=== PATIENT | male | born 1995 | race Caucasian/White ===

== ENCOUNTER 2020-09-16 21:12 | Inpatient (IN) | payer OTHER, SELFPAY ==
[2020-09-16 21:55] VITALS: BP 121/65; PULSE 71; RESP 18; TEMP 36.8; O2SAT 97; BMI 18.1
--- NOTE | 2020-09-16 22:04 | XR_ITS ---
EXAMINATION: XR HIP, LEFT CLINICAL INFORMATION: Fall. Left hip pain. COMPARISON: None TECHNIQUE: Two views of the left hip. FINDINGS: There is a displaced angulated transverse fracture through the neck of the left femur. Femoral head remains seated in the acetabulum. The right proximal femur is normal. No fracture of pelvis. XR/XR hip LT w PEL1V IMPRESSION: Fracture through left femoral neck.
--- NOTE | 2020-09-16 22:11 | ED.FALL ---
HPI - Fall General Chief Complaint: Fall Stated Complaint: FALL Time Seen by Provider: 09/16/20 22:04 Source: patient Mode of arrival: ambulatory Limitations: no limitations History of Present Illness HPI Narrative: 25 years old male otherwise healthy, patient slipped on the snow landed on his left side of his body complaining of left hip pain, patient was not able to bear weight on his left hip ever since, patient appeared comfortable however severe pain if he would try to move his left lower extremities/left hip. Patient decline head injury, C-spine injury, chest injury, abdominal injury. Related Data Allergies Allergy/AdvReac Type Severity Reaction Status Date / Time No Known Allergies Allergy Verified 09/16/20 21:58 Review of Systems Review of Systems: All other systems are reviewed and are negative Constitutional: Reports as per HPI and Reports no additional constitutional complaints Eyes: Reports as per HPI and Reports no additional eye complaints Reports system reviewed and no additional complaints, except as documented Cardiovascular: Reports as per HPI and Reports no additional cardiovascular complaints Respiratory: Reports as per HPI and Reports no additional respiratory complaints Gastrointestinal: Reports as per HPI and Reports no additional gastrointestinal complaints Genitourinary: Reports no additional female genitourinary complaints Musculoskeletal: Reports no additional musculoskeletal complaints Skin/Breast: Reports system reviewed and no additional complaints, except as docu Psychiatric: Reports no additional psychiatric complaints Endocrine: Reports no additional endocrine complaints Hematologic/Lymphatic: Reports no additional hematologic/lymphatic complaints Allergic/Immunologic: Reports no additional allergic/immunologic complaints Reports system reviewed and no additional complaints, except as documented and Reports Abnormal speech present [facility] Past Medical History Medical History No known health problems Social History Social History Smoked in Last 30 Days: No Substance Use Type: Marijuana Advance Directives: No Physical Exam Vital Signs: Vital Signs: Last Vital Signs Temp 98.3 F 09/16/20 21:55 Pulse 80 09/16/20 23:37 Resp 18 09/16/20 23:37 BP 116/68 09/16/20 23:37 Pulse Ox 99 09/16/20 23:37 Body Mass Index 18.1 Vital signs have been reviewed as normal and appeared to be correct. Blood pressure normal. Heart rate normal. Respiration rate normal. Temperature normal. Oxygen saturation normal. Appearance: Alert. Oriented X3. No acute distress. Head: Normal external exam. Normocephalic. Atraumatic. No Jackson signs noted. No raccoon eyes noted Eyes: PERRLA. EOMI. Conjunctiva and sclera normal. Eyelids normal. ENT: EAC normal. TM's Normal. Pharynx normal. Uvula midline. Moist mucous membranes. No trismus noted. No drooling noted. No muffled voice noted. Neck: Normal inspection. Neck supple. FROM. No adenopathy. Thyroid Normal. No meningeal signs. No neck mass noted. CVS: Normal heart rate and rhythm. Heart sound normal. No murmurs noted. Pulses normal throughout. Respiratory: No respiratory distress. Painless inspiration. Breath sounds normal. No wheezes/rales/rhonchi noted. Chest nontender. No accessory muscle usage noted or decreased air movement noted. Abdomen: Soft and nontender. Bowel sounds normal in all 4 quadrants. No distention noted. No organomegaly noted. No visible injury noted. Back: No CVA tenderness. Full range of motion noted. Skin: Skin warm and dry. Normal skin color. Normal skin turgor. No rashes/lesions/lacerations noted. Extremities: No lower extremity edema. Extremities exhibit normal range of motion. Left hip tenderness, mild deformity, left lower extremity is shortened and externally rotated.. Neuro: Oriented X 3. No motor deficit. No sensory deficit. Reflexes normal. Course Course Course Narrative: Assessment and plan. 25-year-old male otherwise healthy presented after fell landed on his left hip as a result has left hip fracture. Admit to ortho. MDM - Fall Lab Data Attestation: I reviewed the patient's lab results. Result diagrams: 09/16/20 22:53 09/16/20 22:54 Labs: Lab Results 09/16/20 09/16/20 Range/Units 22:53 22:54 WBC 15.6 H (4.8-10.8) X10*3/uL RBC 4.09 L (4.60-5.80) X10*6/uL Hgb 13.0 L (14.0-18.0) g/dl Hct 38.0 L (42-52) % MCV 92.9 (80-98) fL MCH 31.8 (27.0-33.0) pg MCHC 34.2 (31.0-36.0) g/dl RDW 12.1 (11.0-16.0) % Plt Count 163 (160-400) X10*3/uL MPV 10.2 (9.4-12.4) fL Immature Gran % (Auto) 0.3 (0.0-0.4) % Neut % (Auto) 88.1 H (45-73) % Lymph % (Auto) 6.2 L (20-40) % [place] % (Auto) 5.1 (2-11) % Eos % (Auto) 0.0 (0-4) % Baso % (Auto) 0.3 (0-2) % Lymph # (Auto) 1.0 L (1.2-4.9) X10*3/uL [place] # (Auto) 0.8 (0.1-1.2) X10*3/uL Eos # (Auto) 0.0 (0.0-0.4) X10*3/uL Baso # (Auto) 0.0 (0.0-0.2) X10*3/uL Abs Immat Gran (auto) 0.05 H (0.00-0.03) X10*3/uL Absolute Neuts (auto) 13.7 H (2.0-8.3) X10*3/uL Absolute Nucleated RBC 0.000 (0.0-0.012) X10*3/uL Nucleated RBC % (auto) 0.0 (0.0-0.2) /100WBC Sodium 141 (135-145) mmol/L Potassium 3.5 (3.3-5.1) mmol/l Chloride 103 (96-108) mmol/L Carbon Dioxide 25 (22-29) mmol/L Anion Gap 17 (12-20) BUN 14 (9-16) mg/dL Creatinine 0.84 (0.5-1.4) mg/dL Estim Creat Clear Calc 111.1 Estimated GFR > 60 Random Glucose 88 (60-115) mg/dL Calcium 9.5 (8.4-10.2) mg/dL Imaging Data Chest x-ray: Radiologist's impression: Unremarkable examination. Left hip x-ray: Radiologist's impression: Fracture through left femural neck. ECG Data Interpretation: Normal sinus rhythm at 66 beats per minute, normal axis, normal intervals, no ST-T changes. Discharge Plan Discharge Clinical Impression: Fall Qualifiers: Encounter type: initial encounter Qualified Code(s): W19.XXXA - Unspecified fall, initial encounter Closed fracture of left hip Qualifiers: Encounter type: initial encounter Qualified Code(s): S72.002A - Fracture of unspecified part of neck of left femur, initial encounter for closed fracture Patient Disposition: Admitted As Inpatient
--- NOTE | 2020-09-16 22:17 | XR_ITS ---
EXAMINATION: XR CHEST CLINICAL INFORMATION: Preoperative COMPARISON: None TECHNIQUE: Frontal view of the chest was obtained. 10:21 PM FINDINGS: No significant abnormality is noted involving the heart, lungs, mediastinum, bony thorax or soft tissues. XR/XR chest 1V IMPRESSION: Unremarkable examination.
--- NOTE | 2020-09-16 22:17 | ECG_ITS ---
Test Reason : BROKEN HIP Blood Pressure : / mmHG Vent. Rate : 066 BPM Atrial Rate : 066 BPM P-R Int : 126 ms QRS Dur : 106 ms QT Int : 402 ms P-R-T Axes : 026 085 060 degrees QTc Int : 421 ms Normal sinus rhythm Normal ECG No previous ECGs available Referred By: Eliot Chi Electronically Signed By:Jaxson Pierre
[2020-09-16 23:00] LABS: MANUAL DIFF FLAG NO
[2020-09-16 23:01] VITALS: RESP 22
[2020-09-16 23:01] LABS: Basophils Percent Auto 0.3 % (0-2); Imm Gran Abs Auto 0.05 X10*3/uL (0.00-0.03); Imm Gran Pct Auto 0.3 % (0.0-0.4); Lymphocytes Percent Auto 6.2 % (20-40); Mean Corpuscular HGB Conc 34.2 g/dl (31.0-36.0); Mean Corpuscular Hemoglobin 31.8 pg (27.0-33.0); Mean Corpuscular Volume 92.9 fL (80-98); Mean Platelet Volume 10.2 fL (9.4-12.4); Monocytes Absolute Auto 0.8 X10*3/uL (0.1-1.2); Monocytes Percent Auto 5.1 % (2-11); Neutrophils Absolute Auto 13.7 X10*3/uL (2.0-8.3); Neutrophils Percent Auto 88.1 % (45-73); Platelet Count 163 X10*3/uL (160-400); Red Blood Count 4.09 X10*6/uL (4.60-5.80); Red Cell Distribution Width 12.1 % (11.0-16.0); White Blood Count 15.6 X10*3/uL (4.8-10.8)
[2020-09-16] MEDS: Morphine Sulfate 2 MG/ML CARTRIDGE 1 MG IVPUSH (23:01)
[2020-09-16] MEDS: Dextrose 5 % and 0.45 % NaCl 1,000 ML 100 ML IVCONT (23:30)
[2020-09-16 23:31] LABS: Anion Gap 17 (12-20); Blood Urea Nitrogen 14 mg/dL (9-16); Calcium 9.5 mg/dL (8.4-10.2); Carbon Dioxide 25 mmol/L (22-29); Chloride 103 mmol/L (96-108); Creatinine Clr Calc Pharmacy 111.1; Estimated Glomerular Filt Rate > 60; Glucose Random 88 mg/dL (60-115); Potassium 3.5 mmol/l (3.3-5.1); Sodium 141 mmol/L (135-145)
[2020-09-16 23:37] VITALS: BP 116/68; PULSE 80; RESP 18; O2SAT 99
[2020-09-17] VITALS (17 sets, daily range): BP systolic 94–123; BP diastolic 57–71; PULSE 57–98; RESP 14–18; TEMP 36.6–37.4; O2SAT 97–100; BMI 18.1
[2020-09-17] MEDS: 0.9 % Sodium Chloride Flush 3 ML SYRINGE IVFLUSH
[2020-09-17 00:37] LABS: COVID-19 Test Negative (Negative); IDNOW Serial# 9DD0AD1C
[2020-09-17] MEDS: 0.9 % Sodium Chloride 1,000 ML 999 ML IVCONT (00:47)
--- NOTE | 2020-09-17 01:20 | PC.NURSE ---
ASSUMED CARE OF PT. PT FELL ON ICE AND FX LEFT HIP AREA. PT NOW RATING PAIN 8/10. PT UNABLE TO GET COMFORTABLE. PT AWAITING FOR SURGERY IN THE MORNING AND IS NPO AT THIS TIME. PT ALERT, RESPIRATIONS EASY, N/L. SKIN W/D. VS OBTAINED. WILL CONTINUE TO MONITOR PT.
--- NOTE | 2020-09-17 01:20 | PC.NURSE ---
REPORT GIVEN TO AUDREY URENA WHO WILL BE TAKING OVER PT CASE. PT HAD TURKEY SANDWICH AT 11PM AND WAS NPO AFTER MIDNIGHT. PT NS RUNNING AND PAIN IN CONTROL AT THIS TIME.
--- NOTE | 2020-09-17 02:20 | PC.NURSE ---
PT RESTING IN STRETCHER. PT C/O PAIN TO LEFT HIP. MD AWARE AND PT MEDICATED PER EMAR. WILL CONTINUE TO MONITOR PT.
[2020-09-17] MEDS: HYDROmorphone HCl 0.5 MG/0.5 ML SYRINGE 0.25 MG IVPUSH ×2 (02:21→06:22)
--- NOTE | 2020-09-17 03:00 | PC.NURSE ---
PT RESTING IN STRETCHER STATING IM FEELING BETTER . PT NOW RATING PAIN 3/10. WILL CONTINUE TO MONITOR PT.
--- NOTE | 2020-09-17 04:22 | PC.NURSE ---
PT AWAKE AND WATCHING TV STATING I CAN'T SLEEP . PT DENIES ANY COMPLAINTS AND ASKING QUESTIONS REGARDING SURGERY. PT REMAINS ALERT, RESPIRATIONS N/L. SKIN W/D. WILL CONTINUE TO MONITOR PT.
--- NOTE | 2020-09-17 06:04 | PC.NURSE ---
PT REQUESTING PAIN MEDS.
--- NOTE | 2020-09-17 07:12 | FL_ITS ---
EXAMINATION: XR FLUOROSCOPY WITH IMAGES CLINICAL INFORMATION: Left hip fracture COMPARISON: Previous x-ray from yesterday TECHNIQUE: Fluoroscopy performed by Dr. Abdullahi Burch. Fluoroscopy time: 1.2 minutes DAP: 0.4 mGycm2 Images: 2 FINDINGS: There are 3 screws transfixing the left femoral neck fracture. Alignment appears improved. FL/FL guidance in OR IMPRESSION: Fluoroscopic guidance for ORIF of left femoral neck fracture.
--- NOTE | 2020-09-17 07:41 | P.HPOP_ITS ---
History of Present Illness History of Present Illness Date of Service: 09/17/20 Chief complaint: Left hip fracture Narrative: SUNIL BROWN is a 25 year old male who slipped on ice last night and injured his left hip. He was seen in the ED complaining of left hip pain. He denies LOC or other injury. He describes falling directly on his left hip. Imaging revealed a displaced left femoral neck fracture. Review of Systems Constitutional: Constitutional: Reports as per HPI and Reports no additional constitutional complaints Eyes: Eyes: Reports no additional eye complaints Cardiovascular: Cardiovascular: Reports as per HPI and Reports no additional cardiovascular complaints Respiratory: Respiratory: Reports as per HPI and Reports no additional respir atory complaints Gastrointestinal: Gastrointestinal: Reports as per HPI and Reports no additional gastrointestinal complaints Integumentary/Breasts: Skin/Breast: Reports system reviewed and no additional complaints, except as docu Neurologic: Reports system reviewed and no additional complaints, except as documented Psychiatric: Psychiatric: Reports no additional psychiatric complaints PMFSH Past Medical History Medical History No known health problems Social History Social History Smoking Status: Never smoker Smoked in Last 30 Days: No Use of substances other than those prescribed or required for medical reasons: Yes Substance Use Type: Marijuana Advance Directives: No Meds Allergies Allergy/AdvReac Type Severity Reaction Status Date / Time No Known Allergies Allergy Verified 09/16/20 21:58 Home Medications Medication Instructions Recorded Confirmed Type No Known Home Meds 09/17/20 09/17/20 History Physical Exam Vital Signs: Vital Signs: Last Vital Signs Temp 98.5 F 09/17/20 07:27 Pulse 64 09/17/20 07:27 Resp 16 09/17/20 07:27 BP 107/71 09/17/20 07:27 Pulse Ox 100 09/17/20 07:27 Body Mass Index 18.1 Const: General: cooperative, healthy appearing, no acute distress and well groomed Orientation/consciousness: oriented to person and oriented to place HENMT: Head: Yes normal to inspection, Yes normocephalic and Yes atraumatic Eyes: General: appearance normal, both eyes and all related structures Alignment and Position: alignment normal Conjunctivae: conjunctivae normal EOM: EOMs intact bilaterally Neck: Neck: Yes normal visual inspection and Yes trachea midline Resp: Other: No rerpiratory distress Effort & Inspection: normal respiratory effort and able to speak in complete sentences Cardio: Other: Palpable radial pulse with no appreciable rythmic abnormalities GI: Other: No abdominal distension Back/Spine/Pelvis: Cervical Spine: normal cervical lordosis and cervical ROM normal Skin: General skin exam: no rashes or lesions noted Neuro: General: oriented to person, oriented to place and gait normal Extrem: Other: left hip with pain on log roll. Externally rotated and shortened. Intact DP pulse. SILT Results Labs Result Diagrams: 09/16/20 22:53 09/16/20 22:54 Labs: Abnormal lab results 09/16/20 Range/Units 22:53 WBC 15.6 H (4.8-10.8) X10*3/uL RBC 4.09 L (4.60-5.80) X10*6/uL Hgb 13.0 L (14.0-18.0) g/dl Hct 38.0 L (42-52) % Neut % (Auto) 88.1 H (45-73) % Lymph % (Auto) 6.2 L (20-40) % Lymph # (Auto) 1.0 L (1.2-4.9) X10*3/uL Abs Immat Gran (auto) 0.05 H (0.00-0.03) X10*3/uL Absolute Neuts (auto) 13.7 H (2.0-8.3) X10*3/uL H & H 09/16/20 Range/Units 22:53 Hgb 13.0 L (14.0-18.0) g/dl Hct 38.0 L (42-52) % All other labs normal. Diagnostic results Hip x-ray: image reviewed (displaced left femoral neck fracture) Assessment and Plan (1) Left displaced femoral neck fracture: Status: Acute This is a 25 yo M with a left femoral neck fracture. It is displaced and requires urgent surgical intervention. I recommend CRPP with possible ORIF of the left hip. I explained the procedure including the risk of avn, fracture displacement and the possible need for additional surgery. I discussed the risk of infection, pain, nerve injury. He expressed understanding and we will proceed forward accordingly.
--- NOTE | 2020-09-17 07:41 | MHC.SHP ---
Pre-Procedural Eval Section A The patient is an INPATIENT: Yes Changes since office visit: Yes Patient answered all questions; No Cold of Flu in the past 2 weeks, No New Medical Problems and No Changes in Medication The History & Physical has been completed within 30 days and I have reviewed it.: Yes Section B Chief Complaint: Left hip fracture Allergies: Allergies Allergy/AdvReac Type Severity Reaction Status Date / Time No Known Allergies Allergy Verified 09/16/20 21:58 Plan I have reviewed the history and physical and performed a pertinent physical examination on my patient. No changes have occurred unless specified.
--- NOTE | 2020-09-17 08:03 | PC.NURSE ---
PATIENT STILL RECEVING A NERVE BLOC BY BEDSIDE.
--- NOTE | 2020-09-17 09:06 | MHC.CM.PN ---
Attempted to meet with patient in regards to d/c planning. Patient has already been taken to the OR. Will attempt to meet again. Continue to monitor for d/c needs.
--- NOTE | 2020-09-17 09:20 | P.BOP_ITS ---
Brief Operative Note Date of Service: 09/17/20 Pre-op diagnosis: left femoral neck fracture Post-op diagnosis: same Procedure: CRPP left femoral neck fracture Implants: styker 8.0 cannulated partially threaded screws x3 Surgeon: Abdullahi Burch MD Anesthesia: GETA, regional and local Mathematical Physicist: Soila Parr Estimated blood loss (mL): 25 Tourniquet time (min): 0 IV fluids (mL): 1,000 Pathology: none sent Condition: stable Disposition: PACU
--- NOTE | 2020-09-17 11:00 | OP_ITS ---
SURGEON: Abdullahi Burch MD INDICATIONS: A 25-year-old gentleman with displaced femoral neck fracture. PREOPERATIVE DIAGNOSIS: Left femoral neck fracture, displaced. POSTOPERATIVE DIAGNOSIS: Left femoral neck fracture, displaced. PROCEDURE PERFORMED: Closed reduction and percutaneous pinning, left femoral neck fracture. ESTIMATED BLOOD LOSS: 50 mL. COMPLICATIONS: None known. ANESTHESIA: Regional and general and local. ASSISTANTS: None. SPECIMENS: IMPLANTS: [place] 8.0 cannulated partially threaded screws x3. FLUIDS: 1 L. PROCEDURE IN DETAIL: The patient was brought to the operating room, placed supine on the operative table. He was prepped and draped in standard sterile fashion. Time-out was called to identify proper site, proper procedure, and proper surgeon. IV antibiotics per weight was administered. I began by applying traction and internal rotation to reduce the head. Biplanar fluoroscopic views were used to confirm the reduction was anatomic on the lateral with near anatomic alignment on the AP with valgus orientation similar to his contralateral limb. I was happy with the reduction and felt that ORIF would not improve this. Therefore, I placed 3 partially threaded K-wires in an inverted triangle position into the neck and head and then measured and placed my three 8.0 mm screws, making sure on biplanar fluoroscopy that they were intraosseous and of the appropriate length and that the fracture reduction was maintained. Traction was let down. Final radiographs were taken. I was happy with the alignment and the positioning. The wound was irrigated, closed with absorbable suture and olvin and I injected 30 mL of 0.25% Marcaine with epinephrine about the incision. MD CHUY Jessica/TREV / [id number]
[2020-09-17] MEDS: Dextrose 5 % and 0.45 % NaCl 1,000 ML 100 ML IVCONT ×2 (13:22→23:34)
[2020-09-17] MEDS: ceFAZolin Sodium/Dextrose,Iso 2 GM/50 ML PIGGYBACK IV (13:25)
[2020-09-17] MEDS: oxyCODONE HCl Immed Release 5 MG TABLET PO ×2 (17:24→22:06)
[2020-09-18] VITALS (8 sets, daily range): BP systolic 91–112; BP diastolic 47–66; PULSE 54–76; RESP 18–20; TEMP 36.6–37.4; O2SAT 97–100; BMI 18.1
[2020-09-18] MEDS: 0.9 % Sodium Chloride Flush 3 ML SYRINGE IVFLUSH ×2 (01:07→15:47)
[2020-09-18] MEDS: oxyCODONE HCl Immed Release 5 MG TABLET PO ×3 (07:08→18:10)
--- NOTE | 2020-09-18 09:12 | PM.PNORT ---
Subjective Subjective Date of Service: 09/18/20 Principal diagnosis: s/p left hip canulated screws Interval history: POD1 s/p canulated screws left hip no overnight events, he has not been out of bed yet, he has minimal pain. No concerns. Physical Exam Vital Signs: Vital Signs: Last Vital Signs Temp 98.9 F 09/18/20 07:40 Pulse 54 09/18/20 07:40 Resp 18 09/18/20 07:40 BP 102/57 L 09/18/20 07:40 Pulse Ox 98 09/18/20 07:40 Body Mass Index 18.1 Const: General: cooperative, healthy appearing and no acute distress Resp: Effort & Inspection: normal respiratory effort and able to speak in complete sentences Cardio: Rate: regular rate Peripheral pulses: Peripheral pulses 2+ throughout GI: Palpation (GI): Soft to palpation Skin: General skin exam: no rashes or lesions noted Extrem: Other: Left hip dressing intact, no erythema or drainage. Sensation intact. Pulses present. Progress Note: A&P Assessment and plan (1) Closed fracture of left hip: Status: Acute Assessment and Plan: Continue pain mgmnt Begin asa for dvt ppx begin PT /OT for left hip fracture-TTWB with crutches Dispo planning-Pending PT eval, pain mgmnt Fall Risk Details Current Medications: Current Medications Generic Name Dose Route Start Last Admin Trade Name Freq PRN Reason Stop Dose Admin Acetaminophen 650 mg 09/16/20 23:26 Acetaminophen 325 Mg Tablet PO QID PRN Pain, Mild (Pain Scale 1-3) Fentanyl 25 mcg 09/17/20 09:20 Fentanyl Citrate/Pf 100 Mcg/2 Ml Vial IVPUSH Q5M PRN Pain, Moderate (Pain Scale 4-6 Hydromorphone HCl 0.25 mg 09/16/20 23:26 09/17/20 06:22 Hydromorphone Hcl 0.5 Mg/0.5 Ml Syringe IVPUSH 0.25 mg RQ4H PRN Administration Pain, Severe (Pain Scale 7-10) Dextrose/Sodium Chloride 1,000 mls @ 100 mls/hr 09/16/20 23:30 09/17/20 23:34 D51/2ns IVCONT 100 mls/hr .Q10H SWATHI Administration Ondansetron HCl 4 mg 09/16/20 23:32 Ondansetron Hcl 4 Mg/2 Ml Vial IVPUSH QID PRN Nausea and Vomiting Ondansetron HCl 4 mg 09/17/20 09:20 Ondansetron Hcl 4 Mg/2 Ml Vial IVPUSH ONCE PRN Nausea and Vomiting Oxycodone HCl 5 mg 09/16/20 23:32 09/18/20 07:08 Oxycodone Hcl Immed Release 5 Mg Tablet PO 5 mg Q4H PRN Administration Pain, Moderate (Pain Scale 4-6 Oxycodone HCl 10 mg 09/17/20 09:20 Oxycodone Hcl Immed Release 5 Mg Tablet PO ONCE PRN Pain, Severe (Pain Scale 7-10) Sodium Chloride 3 ml 09/17/20 00:00 09/18/20 07:12 0.9 % Sodium Chloride Flush 3 Ml Syringe IVFLUSH Not Given QSHIFT SWATHI Time Spent With Patient Time: Total time spent is greater than 50% in coordination of care (as documented) at patient's floor/unit and/or counseling patient: Time with patient: less than 15 minutes
--- NOTE | 2020-09-18 09:24 | MHC.CM.PN ---
PATIENT IS FULLY INDEPENDENT. NO DME OR VNA HE AGREES TO ASSIGNING A HCP, AND HE ASSIGNS HIS , CHULA THE AGENT. COPY IN CHART. CASE MANAGEMENT FOLLOWING FOR DISCHARGE PLAN
--- NOTE | 2020-09-18 09:26 | MHC.CM.PN ---
Addendum entered by Bess Dewitt 09/18/20 09:45: CALL TO [facility] ([phone]) FINDS THAT PATIENT IS NOT ACTIVE WITH THE MEDICAL CENTER. CM OFFICE NOTIFIED. Original Note: PCP IS AT [facility] . HE FORGETS THE PCP NAME. UPDATE MADE IN [employer] QUICK TASK.
--- NOTE | 2020-09-18 09:49 | HO.POSTANES ---
Post Anesthesia Evaluation Post Anesthesia Evaluation Vital Signs: Vital Signs Temp Pulse Resp BP Pulse Ox 09/18/20 07:40 98.9 F 54 18 102/57 L 98 09/18/20 03:17 99.4 F 68 18 100/52 L 97 09/17/20 23:18 99.3 F 68 18 110/58 L 97 Anesthesia: General Mental Status: Awake Pain Control: Satisfactory Nausea/Vomiting: None Hydration: Adequate Anesthesia-Related Issues: No Anes. Related Issues
--- NOTE | 2020-09-18 13:25 | MHC.CM.PN ---
REFERRAL PLACED TO [facility] FOR REQUEST OF HOME PHYSICAL THERAPY SERVICES. PATIENT DOES NOT HAVE A PREFERENCE OF AGENCIES, AND IS AGREEABLE TO [facility]. CASE MANAGEMENT FOLLOWING.
[2020-09-18] MEDS: Dextrose 5 % and 0.45 % NaCl 1,000 ML 100 ML IVCONT (17:59)
[2020-09-19] MEDS: oxyCODONE HCl Immed Release 5 MG TABLET 10 MG PO (00:25)
[2020-09-19 03:24] VITALS: BP 105/58; PULSE 69; RESP 20; TEMP 36.3; O2SAT 97
[2020-09-19] MEDS: Dextrose 5 % and 0.45 % NaCl 1,000 ML 100 ML IVCONT (04:07)
[2020-09-19 06:54] LABS: Basophils Percent Auto 0.4 % (0-2); Red Cell Distribution Width 12.5 % (11.0-16.0)
[2020-09-19 06:57] LABS: Eosinophils Absolute Auto 0.3 X10*3/uL (0.0-0.4); Eosinophils Percent Auto 3.8 % (0-4); Hematocrit 30.9 % (42-52); Hemoglobin 10.1 g/dl (14.0-18.0); Imm Gran Abs Auto 0.03 X10*3/uL (0.00-0.03); Imm Gran Pct Auto 0.4 % (0.0-0.4); Lymphocytes Absolute Auto 2.5 X10*3/uL (1.2-4.9); Lymphocytes Percent Auto 35.9 % (20-40); Mean Corpuscular HGB Conc 32.7 g/dl (31.0-36.0); Mean Corpuscular Hemoglobin 32.2 pg (27.0-33.0); Mean Corpuscular Volume 98.4 fL (80-98); Mean Platelet Volume 10.7 fL (9.4-12.4); Monocytes Absolute Auto 0.8 X10*3/uL (0.1-1.2); Monocytes Percent Auto 11.9 % (2-11); Neutrophils Absolute Auto 3.2 X10*3/uL (2.0-8.3); Neutrophils Percent Auto 47.6 % (45-73); Platelet Count 113 X10*3/uL (160-400); Red Blood Count 3.14 X10*6/uL (4.60-5.80); White Blood Count 6.8 X10*3/uL (4.8-10.8)
[2020-09-19 07:07] LABS: Anion Gap 11 (12-20); Blood Urea Nitrogen 13 mg/dL (9-16); Carbon Dioxide 29 mmol/L (22-29); Chloride 106 mmol/L (96-108); Creatinine Clr Calc Pharmacy 126.1; Estimated Glomerular Filt Rate > 60; Glucose Random 105 mg/dL (60-115); Sodium 142 mmol/L (135-145)
--- NOTE | 2020-09-19 07:24 | PM.PNORT ---
Subjective Subjective Date of Service: 09/19/20 Principal diagnosis: s/p left hip canulated screws Interval history: POD2 s/p lt hip cannulated screws. He is resting comfortably in bed. No overnight events. Wants to go home today. Pain is well managed. Physical Exam Vital Signs: Vital Signs: Last Vital Signs Temp 97.3 F 09/19/20 03:24 Pulse 69 09/19/20 03:24 Resp 20 09/19/20 03:24 BP 105/58 L 09/19/20 03:24 Pulse Ox 97 09/19/20 03:24 Body Mass Index 18.1 Const: General: cooperative, healthy appearing and no acute distress Resp: Effort & Inspection: normal respiratory effort and able to speak in complete sentences Cardio: Rate: regular rate Peripheral pulses: Peripheral pulses 2+ throughout GI: Palpation (GI): Soft to palpation Skin: Lesions: no lesions Rashes: no rashes Extrem: Other: lt hip no ecchymosis, redness, drainage. Dressing is clean dry and intact. NVI. Calf is supple nontender. Progress Note: A&P Assessment and plan (1) Closed fracture of left hip: Status: Acute Assessment and Plan: Continue pain mgmnt Continue ASA for dvt ppx Continue PT for lt hip cannulated screws Dispo planning-Pending PT eval, pain mgmnt Fall Risk Details Current Medications: Current Medications Generic Name Dose Route Start Last Admin Trade Name Freq PRN Reason Stop Dose Admin Acetaminophen 650 mg 09/16/20 23:26 Acetaminophen 325 Mg Tablet PO QID PRN Pain, Mild (Pain Scale 1-3) Fentanyl 25 mcg 09/17/20 09:20 Fentanyl Citrate/Pf 100 Mcg/2 Ml Vial IVPUSH Q5M PRN Pain, Moderate (Pain Scale 4-6 Hydromorphone HCl 0.25 mg 09/16/20 23:26 09/17/20 06:22 Hydromorphone Hcl 0.5 Mg/0.5 Ml Syringe IVPUSH 0.25 mg RQ4H PRN Administration Pain, Severe (Pain Scale 7-10) Dextrose/Sodium Chloride 1,000 mls @ 100 mls/hr 09/16/20 23:30 09/19/20 04:07 D51/2ns IVCONT 100 mls/hr .Q10H SWATHI Administration Ondansetron HCl 4 mg 09/16/20 23:32 Ondansetron Hcl 4 Mg/2 Ml Vial IVPUSH QID PRN Nausea and Vomiting Ondansetron HCl 4 mg 09/17/20 09:20 Ondansetron Hcl 4 Mg/2 Ml Vial IVPUSH ONCE PRN Nausea and Vomiting Oxycodone HCl 5 mg 09/16/20 23:32 09/18/20 18:10 Oxycodone Hcl Immed Release 5 Mg Tablet PO 5 mg Q4H PRN Administration Pain, Moderate (Pain Scale 4-6 Sodium Chloride 3 ml 09/17/20 00:00 09/18/20 23:53 0.9 % Sodium Chloride Flush 3 Ml Syringe IVFLUSH Not Given QSHIFT SWATHI Trazodone HCl 25 mg 09/18/20 20:02 Trazodone Hcl 25 Mg Halftab PO BEDTIME PRN Sleep Time Spent With Patient Time: Total time spent is greater than 50% in coordination of care (as documented) at patient's floor/unit and/or counseling patient: Time with patient: less than 15 minutes
--- NOTE | 2020-09-19 07:26 | P.DS_ITS ---
DS: Providers Provider Date of Service: 09/19/20 Date of admission: 09/16/20 23:23 Primary care physician: Unknown Physician DS: Diagnosis Discharge Diagnosis (1) Closed fracture of left hip: Status: Acute Problem details: Mr. Barksdale is a 25 yo male who presented to the ER with after sustaining a fall onto his left hip. After the fall he was unable to ambulate and had increased left hip pain. He was found to have a left femoral neck fracture. He was consented to move forward with a left hip closed reduction and percutaneous pinning. DS: Medications Discharge Medications Home Medications: Home Medications Medication Instructions Recorded Confirmed No Known Home Meds 09/17/20 09/17/20 Previous Rx's Medication Instructions Recorded oxycodone 10 mg PO Q6H PRN 7 Days #28 tab 09/18/20 DS: Summary Hospital Course Hospital Course: The patient underwent a successful left hip percutaneous pinning, they were transferred to PACU and then to the floor to recover. During their stay, their vitals were stable, afebrile at 97.3. Labs were unremarkable, H/H 10.1/30.9. POD 1 they were started on Aspirin 325mg po bid for DVT ppx, they also received Physical Therapy services twice a day. Prior to discharge, their dressing was clean dry and intact and the plan was to be discharged home with VNA services. Status at Discharge Overall status at discharge: other (Crutches for TTWB ) Time Spent with Patient Time attestation: Total time spent providing and/or coordinating discharge services: Discharge coordination time: Less than 30 minutes (30 mins) Physical Exam Vital Signs: Vital Signs: Last Vital Signs Temp 97.3 F 09/19/20 03:24 Pulse 69 09/19/20 03:24 Resp 20 09/19/20 03:24 BP 105/58 L 09/19/20 03:24 Pulse Ox 97 09/19/20 03:24 Body Mass Index 18.1 Const: General: cooperative, healthy appearing and no acute distress Resp: Effort & Inspection: normal respiratory effort and able to speak in complete sentences Cardio: Rate: regular rate Peripheral pulses: Peripheral pulses 2+ throughout GI: Palpation (GI): Soft to palpation Skin: Lesions: no lesions Rashes: no rashes Extrem: Other: Lt hip no ecchymosis, redness, drainage. Dressing is clean, dry, and intact. Calf is supple and nontender. NVI DS: Data Data Completed and Pending Labs on day of discharge: Laboratory Tests 09/16/20 09/16/20 09/17/20 22:53 22:54 00:16 WBC 15.6 H RBC 4.09 L Hgb 13.0 L Hct 38.0 L MCV 92.9 MCH 31.8 MCHC 34.2 RDW 12.1 Plt Count 163 MPV 10.2 Immature Gran % (Auto) 0.3 Neut % (Auto) 88.1 H Lymph % (Auto) 6.2 L [place] % (Auto) 5.1 Eos % (Auto) 0.0 Baso % (Auto) 0.3 Lymph # (Auto) 1.0 L [place] # (Auto) 0.8 Eos # (Auto) 0.0 Baso # (Auto) 0.0 Abs Immat Gran (auto) 0.05 H Absolute Neuts (auto) 13.7 H Absolute Nucleated RBC 0.000 Nucleated RBC % (auto) 0.0 Sodium 141 Potassium 3.5 Chloride 103 Carbon Dioxide 25 Anion Gap 17 BUN 14 Creatinine 0.84 Estim Creat Clear Calc 111.1 Estimated GFR > 60 Random Glucose 88 Calcium 9.5 COVID-19 (LOKESH) Negative COVID-19 Clin Com See Note 09/19/20 09/19/20 06:02 06:02 WBC 6.8 RBC 3.14 L D Hgb 10.1 L D Hct 30.9 L MCV 98.4 H D MCH 32.2 MCHC 32.7 RDW 12.5 Plt Count 113 L D MPV 10.7 Immature Gran % (Auto) 0.4 Neut % (Auto) 47.6 Lymph % (Auto) 35.9 [place] % (Auto) 11.9 H Eos % (Auto) 3.8 Baso % (Auto) 0.4 Lymph # (Auto) 2.5 [place] # (Auto) 0.8 Eos # (Auto) 0.3 Baso # (Auto) 0.0 Abs Immat Gran (auto) 0.03 Absolute Neuts (auto) 3.2 Absolute Nucleated RBC 0.000 Nucleated RBC % (auto) 0.0 Sodium 142 Potassium 4.0 Chloride 106 Carbon Dioxide 29 Anion Gap 11 L BUN 13 Creatinine 0.74 Estim Creat Clear Calc 126.1 Estimated GFR > 60 Random Glucose 105 Calcium COVID-19 ([facility]) COVID-19 Clin Com Discharge Plan Discharge Patient Disposition: Home Health Service Referrals: Abdullahi Burch MD [Physician] - Rozina Mcpherson PA-C [Physician Molecular Biology Director] - (2 weeks followup with ortho) Discharge Medications: New acetaminophen 325 mg Tablet 650 mg PO QID PRN (Reason: Pain, Mild (Pain Scale 1-3)) 30 Days Qty: 240 RF: 0 oxycodone 10 mg tablet 10 mg PO Q6H PRN (Reason: Pain, Severe (Pain Scale 7-10)) 7 Days Qty: 28 RF: 0 aspirin 325 mg tablet 325 mg PO BID 28 Days Qty: 56 RF: 0 Discharge Orders: Discharge Order (Routine); Ordered 09/19/20 Ordered By: Rozina Mcpherson Diet: regular diet Activity on Discharge: Walk with crutches Stand Alone Forms: Patient Portal Discharge page Activity Restrictions/Additional Instructions: Gait training, strengthening, ADLs Crutches with TTWB Continue ASA for dvt ppx x4 weeks Keep dressing clean, dry and intact-no showering or tub baths Follow up with Orthopedics in 2 weeks Care Plan Goals: Restor fxn of the left hip Health Concerns: none Plan of Treatment: Physical Therapy Pain management DVT prophylaxis
[2020-09-19 07:30] LABS: Calcium 8.4 mg/dL (8.4-10.2)
[2020-09-19 08:00] VITALS: BP 98/53; PULSE 51; RESP 18; TEMP 36.7; O2SAT 100
--- NOTE | 2020-09-19 08:14 | W.MHC.F2F ---
Service Date Service Date: 09/19/20 Reasons for Services Reason for physical therapy: home safety and mobility, therapeutic exercises, restore joint function, gait/transfer training and ADL training Reason for occupational therapy: home safety and mobility, therapeutic exercises, restore joint function, gait/transfer training and ADL training Homebound: Leaving the home is medically contraindicated at this time without the asist of a device and/or another person due th the listed conditions above and below. Homebound supporting statement: Pt. is considered homebound due to recent surgery. Unable to drive, poor balance, poor gait mechanics. Certification: Based on the above findings, I certify that this patient is confined to the home and needs intermittent prison care, physical therapy and/or speech therapy, or continues to need occupational therapy. The patient is under my care, and I have initiated the establishment of the plan of care. The patient will be followed by a physician who will periodically review the plan of care.
--- NOTE | 2020-09-19 08:33 | MHC.CM.PN ---
PATIENT IS DISCHARGED HOME WITH [facility]. PA MADE AWARE THAT PATIENT IS NOT ACTIVE WITH A PCP, AND SURGEON WOULD NEED TO SIGN ORDERS FOR THESE SERVICES.
[2020-09-19] MEDS: Acetaminophen 325 MG TABLET 650 MG PO (08:51)
[2020-09-19] MEDS: oxyCODONE HCl Immed Release 5 MG TABLET PO (08:52)
[2020-09-19 09:45] VITALS: BP 98/53; PULSE 51; O2SAT 100
== END 2020-09-19 12:06 | disposition home health service (06) | DRG 536 ==
LOC: HO.ED 22:30 → HO.EDOVER 09-17 00:07 → HO.S3 09-17 12:26
PROVIDERS: Physician Assistant; Admitting Provider Orthopaedic Surgery; Emergency Provider Emergency Medicine; Visit Provider Anesthesiology
PROC: 0QS Lower Bones, Reposition (ICD-10-PCS; principal; 2020-09-17 08:00)
DX: S72.002A Fracture of unspecified part of neck of left femur, initial encounter for closed fracture (principal); W00.0XXA Fall on same level due to ice and snow, initial encounter; Y93.9 Activity, unspecified; Y92.9 Unspecified place or not applicable; Y99.9 Unspecified external cause status; Z20.822 Contact with and (suspected) exposure to COVID-19
CPT/HCPCS: 36415; 71045; 73502; 80048; 85025; 87635; 93005; 96361; 96374; 97110; 97116; 97161; 97165; 97530; 97535; 99284; 99285; C1713; C1769; J0690; J1100; J1170; J2250; J2270; J2405; J3010

== ENCOUNTER 2020-10-02 08:40 | Outpatient (REF) | payer OTHER, SELFPAY ==
--- NOTE | ~2020-10-02 | XR_ITS ---
EXAMINATION: XR PELVIS XR HIP, LEFT CLINICAL INFORMATION: Left femoral fracture. COMPARISON: Pelvic and left hip radiographs dated 09/16/2020 TECHNIQUE: AP view of the pelvis and frog-leg lateral view of the left hip. FINDINGS: There are 3 orthopedic screws across the left femoral neck with interval reduction of the previously seen displaced femoral neck fracture. The fracture now appears in near-anatomic alignment with mild new bone/callus formation. No acute hardware fracture. No perihardware lucency to suggest loosening or infection. Overlying surgical olvin. No abnormal soft tissue calcification. XR/XR pelvis 1-2V IMPRESSION: Orthopedic screws across the previously seen left femoral neck fracture which now appears in near-anatomic alignment. No evidence of hardware complication. Mild new bone/callus formation.
--- NOTE | ~2020-10-02 | XR_ITS ---
EXAMINATION: XR PELVIS XR HIP, LEFT CLINICAL INFORMATION: Left femoral fracture. COMPARISON: Pelvic and left hip radiographs dated 09/16/2020 TECHNIQUE: AP view of the pelvis and frog-leg lateral view of the left hip. FINDINGS: There are 3 orthopedic screws across the left femoral neck with interval reduction of the previously seen displaced femoral neck fracture. The fracture now appears in near-anatomic alignment with mild new bone/callus formation. No acute hardware fracture. No perihardware lucency to suggest loosening or infection. Overlying surgical olvin. No abnormal soft tissue calcification. XR/XR hip LT min 2V IMPRESSION: Orthopedic screws across the previously seen left femoral neck fracture which now appears in near-anatomic alignment. No evidence of hardware complication. Mild new bone/callus formation.
== END 2020-10-02 08:41 | disposition home or self-care (01) ==
LOC: HO.HOSX 08:40
PROVIDERS: Visit Provider Physician Assistant
DX: S72.002D Fracture of unspecified part of neck of left femur, subsequent encounter for closed fracture with routine healing (principal)
CPT/HCPCS: 72170; 73502

== ENCOUNTER 2020-10-30 07:33 | Outpatient (REF) | payer OTHER, SELFPAY ==
--- NOTE | ~2020-10-30 | XR_ITS ---
EXAMINATION: XR PELVIS XR HIP, LEFT CLINICAL INFORMATION: Pain. COMPARISON: Pelvic and left hip radiographs dated 10/02/2020. TECHNIQUE: AP view of the pelvis and crosstable lateral view of the left hip. FINDINGS: Orthopedic screw is redemonstrated across the left femoral neck fracture. No change in fracture alignment. No significant new bone/callus formation when compared to the prior examination. No radiographic evidence of osseous bridging. No acute hardware fracture or periarticular lucency to suggest loosening or infection. XR/XR hip LT 1V IMPRESSION: Orthopedic screws across the left femoral neck fracture in unchanged anatomic alignment. No evidence of new bone/callus formation or increased osseous bridging.
--- NOTE | ~2020-10-30 | XR_ITS ---
EXAMINATION: XR PELVIS XR HIP, LEFT CLINICAL INFORMATION: Pain. COMPARISON: Pelvic and left hip radiographs dated 10/02/2020. TECHNIQUE: AP view of the pelvis and crosstable lateral view of the left hip. FINDINGS: Orthopedic screw is redemonstrated across the left femoral neck fracture. No change in fracture alignment. No significant new bone/callus formation when compared to the prior examination. No radiographic evidence of osseous bridging. No acute hardware fracture or periarticular lucency to suggest loosening or infection. XR/XR pelvis 1-2V IMPRESSION: Orthopedic screws across the left femoral neck fracture in unchanged anatomic alignment. No evidence of new bone/callus formation or increased osseous bridging.
== END 2020-10-30 07:34 | disposition home or self-care (01) ==
LOC: HO.HOSX 07:33
PROVIDERS: Visit Provider Orthopaedic Surgery
DX: S72.002D Fracture of unspecified part of neck of left femur, subsequent encounter for closed fracture with routine healing (principal)
CPT/HCPCS: 72170; 73501

== ENCOUNTER 2020-12-04 08:07 | Outpatient (REF) | payer OTHER, SELFPAY ==
--- NOTE | ~2020-12-04 | XR_ITS ---
EXAMINATION: XR PELVIS CLINICAL INFORMATION: Fracture COMPARISON: Prior x-ray marked 07/11/2021 TECHNIQUE: AP pelvis and single axial views of the left hip obtained. FINDINGS: [address] through the left femoral neck. Fracture of the left femoral neck has not healed yet. Adjacent pelvic bones and right hip otherwise remain normal. XR/XR hip LT min 2V IMPRESSION: Postsurgical changes, stable mildly displaced left femoral neck fracture, ORIF.
--- NOTE | ~2020-12-04 | XR_ITS ---
EXAMINATION: XR PELVIS CLINICAL INFORMATION: Fracture COMPARISON: Prior x-ray marked 07/11/2021 TECHNIQUE: AP pelvis and single axial views of the left hip obtained. FINDINGS: [address] through the left femoral neck. Fracture of the left femoral neck has not healed yet. Adjacent pelvic bones and right hip otherwise remain normal. XR/XR pelvis 1-2V IMPRESSION: Postsurgical changes, stable mildly displaced left femoral neck fracture, ORIF.
== END 2020-12-04 08:08 | disposition home or self-care (01) ==
LOC: HO.HOSX 08:07
PROVIDERS: Visit Provider Orthopaedic Surgery
DX: M25.552 Pain in left hip (principal); S72.002A Fracture of unspecified part of neck of left femur, initial encounter for closed fracture; X58.XXXA Exposure to other specified factors, initial encounter; Y93.9 Activity, unspecified; Y92.9 Unspecified place or not applicable; Y99.8 Other external cause status
CPT/HCPCS: 72170; 73502

== ENCOUNTER 2021-01-15 07:54 | Outpatient (REF) | payer SELFPAY ==
--- NOTE | ~2021-01-15 | XR_ITS ---
EXAMINATION: PELVIS AND LEFT HIP CLINICAL INFORMATION: Fracture of left femur COMPARISON: Multiple prior examinations most recent November 2020 TECHNIQUE: AP the pelvis and lateral view of the left hip FINDINGS: [address] crossing the previously noted femoral neck fracture. Fracture remains visible but unchanged. Alignment is unchanged with minimal displacement. I suspect there is at least some osseous bridging given the increased sclerosis particularly along the lateral aspect of the fracture line compared with earlier radiographs. Hardware intact The remaining bones joints and soft tissues unremarkable. XR/XR hip LT 1V IMPRESSION: Stable appearance of the left femoral neck fracture status post orthopedic fixation. The fracture remains visible but unchanged.
--- NOTE | ~2021-01-15 | XR_ITS ---
EXAMINATION: PELVIS AND LEFT HIP CLINICAL INFORMATION: Fracture of left femur COMPARISON: Multiple prior examinations most recent November 2020 TECHNIQUE: AP the pelvis and lateral view of the left hip FINDINGS: [address] crossing the previously noted femoral neck fracture. Fracture remains visible but unchanged. Alignment is unchanged with minimal displacement. I suspect there is at least some osseous bridging given the increased sclerosis particularly along the lateral aspect of the fracture line compared with earlier radiographs. Hardware intact The remaining bones joints and soft tissues unremarkable. XR/XR pelvis 1-2V IMPRESSION: Stable appearance of the left femoral neck fracture status post orthopedic fixation. The fracture remains visible but unchanged.
== END 2021-01-15 07:55 | disposition home or self-care (01) ==
LOC: HO.HOSX 07:54
PROVIDERS: Visit Provider Orthopaedic Surgery
DX: S72.002A Fracture of unspecified part of neck of left femur, initial encounter for closed fracture (principal); M25.552 Pain in left hip
CPT/HCPCS: 72170; 73501

== ENCOUNTER 2021-02-12 08:15 | Outpatient (REF) | payer SELFPAY ==
--- NOTE | ~2021-02-12 | XR_ITS ---
EXAMINATION: XR PELVIS 1 VIEWS XR LEFT HIP: 2 VIEWS CLINICAL INFORMATION: Pain COMPARISON: Priors dating back to August 2020 FINDINGS: Again seen are 3 cannulated screws traversing the left femoral neck fracture which now appears healed with residual sclerosis along the fracture indicative of ongoing osseous remodeling. Trace residual lucency evident medially. There is a 2 mm lucency along the screws which is within normal limits. Alignment is unchanged. Femoral heads are spherical. Bilateral coxa valga. Pelvic ring intact. Sacroiliac joints and symphysis pubis unremarkable. XR/XR pelvis 1-2V IMPRESSION: Healing, if not completely healed left femoral neck fracture. There is 2 mm lucency along the cannulated screws which is within normal limits. No new fractures.
--- NOTE | ~2021-02-12 | XR_ITS ---
EXAMINATION: XR PELVIS 1 VIEWS XR LEFT HIP: 2 VIEWS CLINICAL INFORMATION: Pain COMPARISON: Priors dating back to August 2020 FINDINGS: Again seen are 3 cannulated screws traversing the left femoral neck fracture which now appears healed with residual sclerosis along the fracture indicative of ongoing osseous remodeling. Trace residual lucency evident medially. There is a 2 mm lucency along the screws which is within normal limits. Alignment is unchanged. Femoral heads are spherical. Bilateral coxa valga. Pelvic ring intact. Sacroiliac joints and symphysis pubis unremarkable. XR/XR hip LT 1V IMPRESSION: Healing, if not completely healed left femoral neck fracture. There is 2 mm lucency along the cannulated screws which is within normal limits. No new fractures.
== END 2021-02-12 08:16 | disposition home or self-care (01) ==
LOC: HO.HOSX 08:15
PROVIDERS: Visit Provider Orthopaedic Surgery
DX: S72.002A Fracture of unspecified part of neck of left femur, initial encounter for closed fracture (principal)
CPT/HCPCS: 72170; 73501; 99212

== ENCOUNTER 2021-05-07 08:07 | Outpatient (REF) | payer OTHER, SELFPAY ==
--- NOTE | ~2021-05-07 | XR_ITS ---
EXAMINATION: XR PELVIS XR HIP, LEFT CLINICAL INFORMATION: Pain. COMPARISON: Pelvic and left hip radiographs dated 02/12/2021. TECHNIQUE: AP view the pelvis. Frog-leg lateral view of the left hip. FINDINGS: Redemonstration of a healing left femoral neck fracture in unchanged alignment with associated orthopedic screws. No hardware fracture. No perihardware lucency to suggest loosening or infection. Redemonstration of coxa valga, unchanged. No new fracture or dislocation. No osseous erosion. No abnormal soft tissue calcification. XR/XR hip LT 1V IMPRESSION: Left femoral neck fracture and ORIF in unchanged anatomic alignment with mild interval healing. No evidence of hardware complication.
--- NOTE | ~2021-05-07 | XR_ITS ---
EXAMINATION: XR PELVIS XR HIP, LEFT CLINICAL INFORMATION: Pain. COMPARISON: Pelvic and left hip radiographs dated 02/12/2021. TECHNIQUE: AP view the pelvis. Frog-leg lateral view of the left hip. FINDINGS: Redemonstration of a healing left femoral neck fracture in unchanged alignment with associated orthopedic screws. No hardware fracture. No perihardware lucency to suggest loosening or infection. Redemonstration of coxa valga, unchanged. No new fracture or dislocation. No osseous erosion. No abnormal soft tissue calcification. XR/XR pelvis 1-2V IMPRESSION: Left femoral neck fracture and ORIF in unchanged anatomic alignment with mild interval healing. No evidence of hardware complication.
== END 2021-05-07 08:08 | disposition home or self-care (01) ==
LOC: HO.HOSX 08:07
PROVIDERS: Visit Provider Orthopaedic Surgery
DX: S72.002A Fracture of unspecified part of neck of left femur, initial encounter for closed fracture (principal)
CPT/HCPCS: 72170; 73501; 99212

== ENCOUNTER 2021-08-06 08:00 | Outpatient (REF) | payer OTHER, SELFPAY ==
--- NOTE | ~2021-08-06 | XR_ITS ---
EXAMINATION: PELVIS AND LEFT HIP X-RAYS CLINICAL INFORMATION: Left hip pain COMPARISON: 05/07/2021 TECHNIQUE: A frontal radiograph of the pelvis and cross table lateral radiograph of the left hip were acquired. FINDINGS: There are 3 cannulated screws transfixing a healed subcapital fracture of the left femoral neck. There is no evidence of ostial lysis or recurrent fracture. The remainder of the osseous structures are intact. XR/XR pelvis 1-2V IMPRESSION: Intact cannulated screws transfixing healed fracture of the left femoral neck, with no suspicious findings.
--- NOTE | ~2021-08-06 | XR_ITS ---
EXAMINATION: PELVIS AND LEFT HIP X-RAYS CLINICAL INFORMATION: Left hip pain COMPARISON: 05/07/2021 TECHNIQUE: A frontal radiograph of the pelvis and cross table lateral radiograph of the left hip were acquired. FINDINGS: There are 3 cannulated screws transfixing a healed subcapital fracture of the left femoral neck. There is no evidence of ostial lysis or recurrent fracture. The remainder of the osseous structures are intact. XR/XR hip LT min 2V IMPRESSION: Intact cannulated screws transfixing healed fracture of the left femoral neck, with no suspicious findings.
== END 2021-08-06 08:01 | disposition home or self-care (01) ==
LOC: HO.HOSX 08:00
PROVIDERS: Visit Provider Physician Assistant
DX: S72.002D Fracture of unspecified part of neck of left femur, subsequent encounter for closed fracture with routine healing (principal)
CPT/HCPCS: 72170; 73502; 99212

== ENCOUNTER 2021-11-23 12:20 | Outpatient (REF) | payer OTHER, SELFPAY | END 2021-11-23 12:21 | disposition home or self-care (01) | LOC: HO.HOSX 12:20 | PROVIDERS: Visit Provider Orthopaedic Surgery | DX: Z13.89 Encounter for screening for other disorder (principal) ==

== ENCOUNTER 2022-04-15 08:40 | Outpatient (REF) | payer OTHER, SELFPAY ==
--- NOTE | ~2022-04-15 | XR_ITS ---
EXAMINATION: XR HIP, LEFT CLINICAL INFORMATION: Hip pain COMPARISON: Pelvis and left hip radiographs 08/06/2021, 05/07/2021 TECHNIQUE: AP view pelvis is performed along with AP and frog-lateral projections left hip. FINDINGS: No acute bony abnormality. No acute fracture or dislocation or destructive process. There are 3 cannulated screws again seen left hip. Hardware intact. No destructive process or osteolysis. There is spina bifida occulta at S1. The SI joints and pubis show no diastases. No interval hip joint narrowing or erosive change. XR/XR hip LT w PEL1V IMPRESSION: Postsurgical changes left hip. No destructive process. Hardware intact. No acute bony abnormality.
== END 2022-04-15 08:41 | disposition home or self-care (01) ==
LOC: HO.HOSX 08:40
PROVIDERS: Visit Provider Orthopaedic Surgery
DX: S72.002A Fracture of unspecified part of neck of left femur, initial encounter for closed fracture (principal)
CPT/HCPCS: 73502; 99212

== ENCOUNTER 2022-12-14 01:30 | Inpatient (IN) | payer OTHER, SELFPAY ==
--- OUTSIDE RECORDS SUMMARY | 2022-12-14 01:35 | XMS_ITS | Continuity of Care Document ---
Author Name Unknown Organization [facility] Address [address] [place] [address]- Care Team Providers Care Shuttle Operator Name Role Phone Zay Flores MD, Arnold Primary Care Physician Encounter [facility] Date(s): 08/31/21 - 09/30/21 [facility] [address] [place] [address]- Attending Physician: Osiel Lees Admitting Physician: Osiel Lees Referring Physician: Admtr, Ar8 Allergies, Adverse Reactions, Alerts No Known Allergies Immunizations Given and Recorded Vaccine Date Status Refusal Reason SARS-CoV-2 (COVID-19) mRNA BNT-162b2 vac 02/03/21 Recorded SARS-CoV-2 (COVID-19) mRNA BNT-162b2 vac 01/10/21 Recorded Varicella Virus Vaccine 07/09/08 Recorded Varicella Virus Vaccine 03/15/95 Recorded Meningococcal Conjugate Vaccine 07/09/08 Recorded tetanus/diphtheria/pertussis, acel(Tdap) 05/06/06 Recorded Measles/Mumps/Rubella Virus Vaccine 05/29/98 Recor ded Measles/Mumps/Rubella Virus Vaccine 08/25/95 Recor ded Medications PEG-3350 with Electrolytes (Eqv-[id number]) oral powder for reconstitution See Instructions, as directed, # 1 each, 0 Refills, Maintenance, 08/31/21 11:07:00 EST, [id number], ok to sub for any gallon prep, as directed, 180, cm, 06/29/21 13:03:00 EST, Height Start Date: 08/31/21 Status: Ordered Zofran 4 mg oral tablet 1 tablet = 4 mg, By Mouth, Every 8 hours, PRN Nausea & Vomiting, # 10 tablet, 0 Refills, Maintenance, 06/29/21 14:20:00 EST, Tablet, Partial fill upon patient request if the prescription is for aschedule II opioid drug. Start Date: 06/29/21 Status: Ordered Problem List Condition Effective Dates Status Health Status Inform ant Abnormal weight loss(Confirmed) Active Anxiety state(Confirmed) Active Closed fracture of hip(Confirmed) 10/20/20 Active Osteoporosis(Confirmed) 12/07/20 Active Underweight(Confirmed) Active Social History Social History Type Response Smoking Status Never (less than 100 in lifetime) entered on: 06/29/21 Sex Male
--- OUTSIDE RECORDS SUMMARY | 2022-12-14 01:35 | XMS_ITS | Continuity of Care Document ---
Author Name Unknown Organization [facility] [place] Address [address] [place] [address]- Care Team Providers Care Religion Teacher Name Role Phone Zay Flores MD, Arnold Primary Care Physician Encounter [facility] Date(s): 05/21/22 - 06/20/22 [facility] [place] [address] [place] [address]- Attending Physician: Osiel Lees Admitting Physician: AdmtrOsiel Referring Physician: Admtr, Ar8 Allergies, Adverse Reactions, [...] Measles/Mumps/Rubella Virus Vaccine 08/25/95 Recor ded Medications FLUoxetine 10 mg oral capsule 10 mg, 1, capsule, By Mouth, Daily, # 30 capsule, Refills 0, Maintenance, 09/03/21 12:37:00 EST, Partial fill upon patient request if the prescription is for a schedule II opioid drug. 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
--- OUTSIDE RECORDS SUMMARY | 2022-12-14 01:35 | XMS_ITS | Continuity of Care Document ---
Author Name Unknown Organization [facility] [place] Address [address] [place] [address]- Care Team Providers Care Bus Driver/Monitor Name Role Phone Arnold Thornton MD Primary Care Physician Encounter [facility] Date(s): 04/08/22 - 05/08/22 [facility] [place] [address] [place] [address]- Allergies, Adverse Reactions, Alerts No Known Allergies [...] Date: 09/03/21 Status: Ordered Problem List Condition Effective Dates Status Health Status Inform ant Abnormal weight loss(Confirmed) Active Anxiety state(Confirmed) Active Chronic hip pain after total replacement of left hip joint(Confirmed) Active Closed fracture of hip(Confirmed) 10/20/20 Active Osteoporosis(Confirmed) 12/07/20 Active Social History Social History Type Response Smoking Status Never (less than 100 in lifetime) entered on: 06/29/21 Sex Male Care Team Personnel Name: Arnold Thornton MD Address: [address] [place] [address], [place] [address]-
--- OUTSIDE RECORDS SUMMARY | 2022-12-14 01:35 | XMS_ITS | Continuity of Care Document ---
Author Name Unknown Organization [facility] [place] Address [address] [place] [address]- Care Team Providers Care Air Tucker Name Role Phone Arnold Thornton MD Primary Care Physician Encounter [facility] Date(s): 04/08/22 - 05/08/22 [facility] [place] [address] [place] [address]- Allergies, Adverse Reactions, Alerts No Known Allergies [...] Team Personnel Name: Arnold Thornton MD Address: [address] [place] [address], [place] [address]-
--- OUTSIDE RECORDS SUMMARY | 2022-12-14 01:35 | XMS_ITS | Continuity of Care Document ---
Author Name Unknown Organization [facility] [place] Address [address] [place] [address]- Care Team Providers Care Head Of Cytogenetics Name Role Phone Arnold Thornton MD Primary Care Physician Encounter [facility] Date(s): 07/06/21 - 10/03/21 [facility] [place] [address] [place] [address]- Attending Physician: Arnold Thornton MD Allergies, Adverse Reactions, Alerts No Known Allergies [...]
--- OUTSIDE RECORDS SUMMARY | 2022-12-14 01:35 | XMS_ITS | Continuity of Care Document ---
Author Name Unknown Organization [facility] [place] Address [address] [place] [address]- Care Team Providers Care Human Services Manager Name Role Phone Arnold Thornton MD Primary Care Physician Encounter [facility] Date(s): 04/09/22 - 05/09/22 [facility] [place] [address] [place] [address]- Allergies, Adverse Reactions, Alerts No Known Allergies [...] Team Personnel Name: Arnold Thornton MD Address: [address] [place] [address], [place] [address]-
--- OUTSIDE RECORDS SUMMARY | 2022-12-14 01:36 | XMS_ITS | Continuity of Care Document ---
Author Name Unknown Organization [facility] Address [address] [place] [address]- Care Team Providers Care Law Tutor Name Role Phone Arnold Thornton MD Primary Care Physician Encounter [facility] Date(s): 02/20/22 - 06/20/22 [facility] [address] [place] [address]- Attending Physician: Arnold Thornton MD Allergies, Adverse [...] (less than 100 in lifetime) entered on: 11/8/21 Sex Male Patient Care team information Personnel Name: Arnold Thornton MD Address: Address: [address] [place] [address] Juan Manuel Zam[place] [address]
--- OUTSIDE RECORDS SUMMARY | 2022-12-14 01:36 | XMS_ITS | Continuity of Care Document ---
Author Name Unknown Organization [facility] Address [address] [place] [address]- Care Team Providers Care Seed Production Field Supervisor Name Role Phone Hernan Forrester MD Primary Care Physician Encounter [facility] Date(s): 08/07/20 - 09/06/[address] [id number] Allergies, Adverse Reactions, Alerts Substance Reaction Severity Status NKA Active
--- OUTSIDE RECORDS SUMMARY | 2022-12-14 01:36 | XMS_ITS | Continuity of Care Document ---
Author Name Unknown Organization [facility] Address [address] [place] [address]- Care Team Providers Care School Photographer Name Role Phone Hernan Forrester MD Primary Care Physician Encounter [facility] Date(s): 10/09/20 - 11/08/[address] [address] Allergies, Adverse Reactions, Alerts Substance Reaction Severity Status NKA Active
--- OUTSIDE RECORDS SUMMARY | 2022-12-14 01:36 | XMS_ITS | Continuity of Care Document ---
Author Name Unknown Organization [facility] Address [address] [place] [address]- Care Team Providers Care Commercial Solar Sales Consultant Name Role Phone Zay Flores MD, Arnold Primary Care Physician En[place] [facility] [place] Date(s): 10/20/21 - 10/20/[address] [address]- Discharge Disposition: A-D/C Home Attending Physician: Citlalli Tellez MD Admitting Physician: Citlalli Tellez MD Referring Physician: Citlalli Tellez MD Allergies, Adverse Reactions, Alerts No Known [...] of hip(Confirmed) 10/20/20 Active Osteoporosis(Confirmed) 12/07/20 Active Vital Signs Most recent to oldest [Reference Range]: 1 2 3 Height 180 cm (10/20/21 10:45 AM) Weight 60.6 kg (10/20/21 10:45 AM) Oxygen Saturation [94-100 %] 100 % (10/20/21 12:30 PM) 100 % (10/20/21 12:25 PM) 100 % (10/20/21 12:20 PM) Pulse Rate [55-90 bpm] 76 bpm (10/20/21 10:45 AM) Body Mass Index [18.5-24.99] 18.7 (10/20/21 10:45 AM) Blood Pressure [90-138/55-84 mm Hg] 130/74mm Hg (10/20/21 12:30 PM) 114/73mm Hg (10/20/21 12:25 PM) 109/66mm Hg (10/20/21 12:20 PM) Respiratory Rate [16-30 br/min] 14 br/min *L* (10/20/21 12:30 PM) 27 br/min (10/20/21 12:25 PM) 12 br/min *L* (10/20/21 12:20 PM) Temperature [96.8-100.4 DegF] 97.0 DegF (10/20/21 10:45 AM) Liters per Minute 6 L/min (10/20/21 12:20 PM) 6 L/min (10/20/21 12:15 PM) Mode of Delivery (Oxygen) Room air (10/20/21 12:45 PM) Room air (10/20/21 12:30 PM) Room air (10/20/21 12:25 PM) Blood pressure sites Arm, left (10/20/21 10:45 AM) Temperature Route Temporal (10/20/21 10:45 AM) Dry Weight 60.6 kg (10/20/21 10:45 AM) Weight Obtained Via Standing scale (10/20/21 10:45 AM) Dry Weight Obtained Via Standing scale (10/20/21 10:45 AM) Social History Social History Type Response Smoking Status Never (less than 100 in lifetime) entered on: 06/29/21 Sex Male
--- OUTSIDE RECORDS SUMMARY | 2022-12-14 01:36 | XMS_ITS | Continuity of Care Document ---
Author Name Unknown Organization [facility] Address [address] [place] [address]- Care Team Providers Care Epic Ambulatory Analysts Name Role Phone Zay Flores MD, Arnold Primary Care Physician Encounter [facility] Date(s): 09/03/21 - 10/03/21 [facility] [address] [place] [address]- Allergies, Adverse Reactions, Alerts No Known Allergies [...]
--- OUTSIDE RECORDS SUMMARY | 2022-12-14 01:36 | XMS_ITS | Continuity of Care Document ---
Author Name Unknown Organization [facility] Address [address] [place] [address]- Care Team Providers Care Commercial Estimator Name Role Phone Not on Staff, PCP Primary Care Physician Unavail able [facility] [facility] [place] 06/29/21 - 06/29/[address] [address]- Encounter Diagnosis Weight loss(Final) - 06/29/21 Nausea(Final) - 06/29/21 Discharge Disposition: A-D/C Home Attending Physician: Gavi Dickerson MD Admitting Physician: Gavi Dickerson MD Referring Physician: Not on Staff, Referring MD Allergies, Adverse Reactions, Alerts Substance Reaction Severity Status NKA Active Medications Zofran 4 mg oral tablet 1 tablet = 4 mg, By Mouth, Every 8 hours, PRN Nausea & Vomiting, # 10 tablet, 0 Refills, Maintenance, 06/29/21 14:20:00 EST, Tablet, Partial fill upon patient request if the prescription is for aschedule II opioid drug. Start Date: 06/29/21 Status: Ordered Vital Signs Most recent to oldest [Reference Range]: 1 2 3 Height 180 cm (06/29/21 1:03 PM) 180 cm (06/29/21 9:54 AM) Weight 54.5 kg (06/29/21 1:03 PM) 54.5 kg (06/29/21 9:54 AM) Oxygen Saturation [94-100 %] 100 % (06/29/21 1:03 PM) 100 % (06/29/21 9:54 AM) 100 % (06/29/21 9:48 AM) Pulse Rate [55-90 bpm] 61 bpm (06/29/21 1:03 PM) 66 bpm (06/29/21 9:54 AM) 77 bpm (06/29/21 9:48 AM) Body Mass Index [18.5-24.99] 16.82 *L* (06/29/21 9:54 AM) Blood Pressure [90-138/55-84 mm Hg] 113/73mm Hg (06/29/21 1:03 PM) 104/65mm Hg (06/29/21 9:54 AM) Respiratory Rate [16-30 br/min] 18 br/min (06/29/21 1:03 PM) 16 br/min (06/29/21 9:54 AM) Temperature [96.8-100.4 DegF] 97.8 DegF (06/29/21 1:03 PM) 98.2 DegF (06/29/21 9:54 AM) Mode of Delivery (Oxygen) Room air (06/29/21 1:03 PM) Room air (06/29/21 9:54 AM) Blood pressure sites Arm, left (06/29/21 1:03 PM) Arm, left (06/29/21 9:54 AM) Temperature Route Oral (06/29/21 1:03 PM) Oral (06/29/21 9:54 AM) Weight Obtained Via Patient/family state d (06/29/21 9:54 AM) Social History Social History Type Response Smoking Status Never (less than 100 in lifetime) entered on: 06/29/21 Sex
--- OUTSIDE RECORDS SUMMARY | 2022-12-14 01:36 | XMS_ITS | Continuity of Care Document ---
Author Name Unknown Organization [facility] Address [address] [place] [address]- Care Team Providers Care Electrician Helper Automotive Name Role Phone Zay Flores MD, Arnold Primary Care Physician [place] [facility] [place] 09/26/21 [facility] [address] [place] [address] [place] Allergies, Adverse Reactions, Alerts No Known Allergies [...]
--- OUTSIDE RECORDS SUMMARY | 2022-12-14 01:36 | XMS_ITS | Continuity of Care Document ---
Author Name Unknown Organization [facility] Address [address] [place] [address]- Care Team Providers Care Braille And Talking Books Clerk Name Role Phone Jade Quevedo Primary Care Physician [phone] Encounter [facility] Date(s): 07/20/21 - 08/19/21 [facility] [address] [place] [address] [place] Allergies, Adverse Reactions, Alerts Substance Reaction Severity Status NKA Active Medications Zofran 4 mg oral tablet 1 tablet = 4 mg, By Mouth, Every 8 hours, PRN Nausea & Vomiting, # 10 tablet, 0 Refills, Maintenance, 06/29/21 14:20:00 EST, Tablet, Partial fill upon patient request if the prescription is for aschedule II opioid drug. Start Date: 06/29/21 Status: Ordered Social History Social History Type Response Smoking Status Never (less than 100 in lifetime) entered on: 06/29/21 Sex Male
[2022-12-14 01:42] VITALS: BP 112/58; PULSE 56; RESP 16; TEMP 36.1; O2SAT 100
--- NOTE | 2022-12-14 03:21 | PC.ADMIT ---
PT is a 27 year old male admitted on CV at 0140 from [facility] ED secondary to a suicide attempt via ingestion of unknown amount of APAP and Vicodin medication and attempted hanging using a doorknob and shoelaces. PT then called his and she called EMS. Per crisis report PT became emotionally dysregulated in response to a verbal altercation with a peer in his home after they had been using Psilocybin ( magic mushrooms). According to the crisis report the peer severed his friendship with the PT due to verbal altercation intensifying when it was discovered that PT had taken some of his peers magic mushrooms and PT began to perseverate on his feelings of guilt and shame and ruminating on ending his life. During the admission process PT was calm and cooperative dressed in hospital attire. Hospitalist and notified of admission. PT T 97.0, P 56, O2 100 %/RA, R 16 and BP 112/58, PT has hx of asymptomatic bradycardia with HR in the 50s at times and severe osteoporosis and hx of hip fracture. PT declined flu shot, tox screen positive for THC and benzos. PT stated during admission interview that he has felt hopeless for years and has past suicide attempts, Nora is very supportive. PT denies SI/HI/AH/VH and reports safe on unit. PT currently in bed resting with eyes closed.
[2022-12-14 04:06] VITALS: BMI 18.1
[2022-12-14 08:49] VITALS: BP 107/68; PULSE 72; RESP 16; TEMP 36.7; O2SAT 99
[2022-12-14] MEDS: hydrOXYzine HCL 25 MG TABLET PO (09:06)
--- NOTE | 2022-12-14 12:28 | P.CONHOSP_ITS ---
History of Present Illness Data of Consult Service Date: 12/14/22 Requesting physician: Sunny Gama Primary Care Provider: Unknown Physician HPI Reason for consult: medical H&P 27 year old male with history osteoporosis with hx left displaced femoral neck fracture and depression/anxiety admitted to psychiatry with consult placed for medical H&P from [facility] ED for attempted suicide with ingestion unknown amount apap and attempted hanging. On arrival to [facility] ED, acetaminophen level was 41.5 with LFTs within normal range and treatment for Tylenol toxicity was not indicated. He was noted to be hypotensive with SBP in the 80s and bradycardic around 40. EKG showed sinus bradycardia without any AV blocks. Prior EKG comparison sewed similar findings. The patient denies any lightheadedness, palpitations, syncope. He tells me that he has been using psilocybin with increased frequency over the last 3 weeks and also vapes cannabis and uses edibles. Denies any alcohol use or cigarette smoking. At this time, he has no complaints. He does tell me that he has had an extensive workup regarding the osteoporosis and has been seen by multiple specialists including orthopedic surgeons, financial retirement plan specialist, geneticists without any conclusive findings. Review of Systems Review of Systems: General: No fevers, malaise, unintentional weight loss HEENT: No blurred vision, diplopia. No sore throat, nasal congestion, rhinorrhea, sinus pain, ear pain Cardiovascular: No chest pain, palpitations, or leg edema Respiratory: No shortness of breath, wheezing, cough GI: No abdominal pain, nausea, vomiting, diarrhea, constipation, melena, hematochezia : No dysuria, hematuria, increased urinary frequency, decreased urinary output MSK: No myalgia, back pain Neuro: No headaches, weakness, paresthesias Skin: No rashes or lesions [facility] Medical History Fall Left displaced femoral neck fracture Osteoporosis Tylenol overdose Social History Household Members: Spouse Household Members Other:: 2 Housing: Apartment Do you presently have visiting nurse or other home services: No Unable to assess alcohol history related to: Unknown Patient Tobacco Use Status: Never used Tobacco Smoked in Last 30 Days: No Patient Interested in Nicotine Replacement: No Patient Given Instructions on How to Stop Smoking: No Second Hand Smoke Exposure: No Use of substances other than those prescribed or required for medical reasons: Yes Substance Use Type: Marijuana Substance Use Type Other:: magic mushrooms (daily last 2 weeks) otherwise sporadic Substance Use Frequency: Daily Last Used Substance: Just Prior to Admission Last Used Substance Other:: THC, magic mushrooms Currently Displaying Signs/Symptoms of Drug Intoxication Withdrawal: No Any prior treatment program specific to substance use: No Have you been hit, kicked, punched, or otherwise hurt by someone within the past year? If so, by whom?: No Do you feel safe in your current relationship?: Yes Is there a partner from a previous relationship who is making you feel unsafe now?: No Are you made to feel afraid or neglected: No Spiritual Healthcare Practices: none [facility] Healthcare Practices: none Cultural Healthcare Practices: none Advance Directives: No Advance Directives Information Provided: Yes Do you have thoughts of harming others: None Do you have a plan to hurt others: No Plan Recently lost weight without trying: Yes How much weight loss: 2-13 pounds Eating poorly because of decreased appetite: Yes Nutrition screen score: 4 Nutrition Risks: No Nutritional Risk Poor oral hygiene: No service: No Current occupational status: employed [employer] Allergies Allergy/AdvReac Type Severity Reaction Status Date / Time No Known Allergies Allergy Verified 04/29/22 08:49 Active Medications: Current Medications Acetaminophen (Acetaminophen 325 Mg Tablet) 650 mg PO Q6H PRN PRN Reason: Headache/Pain Mild Scale (1-3) Al Hydroxide/Mg Hydroxide (Magnesium Hydrox/Alum Hydrox 30 Ml Oral.Susp) 30 ml PO Q6H PRN PRN Reason: Heartburn/Nausea Hydroxyzine HCl (Hydroxyzine Hcl 25 Mg Tablet) 25 mg PO Q6H PRN PRN Reason: Anxiety Last Admin: 12/14/22 09:06 Dose: 25 mg Magnesium Hydroxide (Milk Of Magnesia 30 Ml Oral.Susp) 30 ml PO DAILY PRN PRN Reason: Constipation Trazodone HCl (Trazodone Hcl 50 Mg Tablet) 50 mg PO BEDTIME MRX1 PRN PRN Reason: Insomnia Home Medications Medication Instructions Recorded Confirmed Last Taken Type fluoxetine 10 mg capsule 20 mg PO QAM 04/15/22 12/14/22 Unknown History Physical Exam 2 Vital Signs and Narrative: Vital Signs: Last Vital Signs Temp 97.0 F 12/14/22 01:42 Pulse 56 12/14/22 01:42 Resp 16 12/14/22 01:42 BP 112/58 L 12/14/22 01:42 Pulse Ox 100 12/14/22 01:42 O2 Del Method Room Air 12/14/22 01:42 BMI result Body Mass Index 18.1 Constitutional - Awake and Alert, No apparent distress Eyes - PERRLA, EOMI Cardiovascular - S1S2, RRR, No edema Respiratory - Normal lung expansion, Normal respiratory effort, No respiratory distress, CTA bilaterally Gastrointestinal - NT / ND; +BS; No rebound or guarding Extremities - no calf tenderness bilaterally, no swelling Musculoskeletal - Normal inspection, normal ROM Skin - Warm/Dry Neurological - Alert & oriented x3, CN II-XII in tact, 5/5 strength BUE and BLE Psychological - Appropriate affect Assessment and Plan (1) Routine medical exam: Status: Acute Plan 27 year old male with history osteoporosis with hx left displaced femoral neck fracture and depression/anxiety admitted to psychiatry with consult placed for medical H&P from [facility] ED for attempted suicide with ingestion unknown amount apap and attempted hanging. #Depression/anxiety with SI -plan per psychiatry #Intentional tylenol OD -Acetaminophen level at [facility] ED 41.5, LFTs WNL -treatment within-acetylcysteine not indicated #Sinus bradycardia- seems resolved -EKG at [facility] showing sinus bradycardia, no AV block -Asymptomatic. No intervention need -monitor vitals #Osteoporosis -Pt very young without typical risk factors. Has been worked up extensively by multiple specialties -Recommend calcium and vitamin D supplements -Outpt followup #Moderate malnutrition with protein deficiency -likely complicated by depression/anxiety related anorexia -Nutrition consult placed Thank you for allowing me to participate in this consult. Signing off at this time. Please do not hesitate to call for further questions. Time Spent With Patient Time: Total time managing care of this patient today ____ minutes.
--- NOTE | 2022-12-14 14:02 | P.HPPS_ITS ---
HPI Date of Service: 12/14/22 Chief Complaint: Persistent depressive disorder Sources of Information: patient interviewed, chart reviewed and crisis/core team assessment reviewed HPI Subjective Notes: Hdz Warning and Conditional Voluntary Narrative: Patient is a 27-year-old male with history of chronic depression, anxiety, suicidal ideation, early onset Osteoporosis and psychedelics drug abuse who presents for suicide attempt in the face of depression, relational strife and intoxication on Psylisibin. Patient reports that over the past month his mood has been overall good enough, despite intermittent suicidal thinking, and he is been functioning well, working and maintaining his relationship. Patient has however been abusing psychedelics drugs more this past month due to some increased general anxieties (a state of the world, trying to find a spiritual experience, purpose in life...). This past week he and his friend engaged in significant amount of psychedelics drug abuse during which time they had an argument, patient felt guilty and while intoxicated felt hopeless and attempted to hang himself and overdose on Tylenol. Patient was medically cleared by [facility] ED. patient has been taking Prozac 20 mg consistently though remains with chronic depression/anxiety; he denies AVH, history of manic behavior/episodes or other drug or alcohol abuse. Patient has a history of emotional trauma. He is no longer actively suicidal and would like treatment for depression and anxiety. Past Psychiatric History: Depressed since 4 years old Medication History of Prozac; hydroxyzine Has outpatient providers No history of psychiatric hospitalizations History of 1 time suicide attempt 2020 by hanging however told no one was not admitted Medical Evaluation Reviewed: Hospitalist Griselda Pending [facility] Medical History (Updated 12/14/22 @ 15:11 by Sunny Gama MD) Anxiety Fall Left displaced femoral neck fracture MDD (major depressive disorder), recurrent episode, severe Osteoporosis Tylenol overdose Family History: Mother: Bipolar disorder Maternal aunt: Bipolar disorder Father: Alcoholism, depression Brother: Depression Social History: Lives together with whom he has been with since he has a teenager 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 Substance History: Abuse is Psychedelics for the past several years Trauma History: Emotional trauma history Diagnostics Vital Signs (24Hr): Vital Signs - 24 hr 12/14/22 01:42 12/14/22 08:49 Temperature 97.0 F 98.1 F Pulse Rate 56 72 Respiratory Rate 16 16 Blood Pressure 112/58 L 107/68 Pulse Oximetry 100 99 Oxygen Delivery Method Room Air Room Air BMI result Body Mass Index 18.1 Labs 12/14/22 16:10 Meds/Allergies Meds Home Medications Medication Instructions Recorded Confirmed Type fluoxetine 10 mg capsule 20 mg PO QAM 04/15/22 12/14/22 History Allergies Allergies Allergy/AdvReac Type Severity Reaction Status Date / Time No Known Allergies Allergy Verified 04/29/22 08:49 Mental Status Exam Mental Status Exam Narrative: Pt is alert and oriented; behavior is cooperative, friendly and calm; patient is not in distress; dressed in hospital attire, shaved head, adequate hygiene; mood is described as depressed, anxious and affect congruent, downcast; eye contact appropriate; Speech is normal rate, volume and prosody and not pressured; psychomotor retardation present; thought process is goal directed; Thought content is on treatment; otherwise pertinent to relevant topics and without any delusional content, paranoid ideations or grandiosity; passive SI; no HI. There is no evidence of perceptual disturbance and denies AVH. Patients insight and judgment are impaired. Assessment & Plan Assessment & Plan (1) MDD (major depressive disorder), recurrent episode, severe: Status: Acute Code(s): F33.2 - Major depressive disorder, recurrent severe without psychotic features (2) Anxiety: Status: Acute Code(s): F41.9 - Anxiety disorder, unspecified (3) Hallucinogenic mushrooms use disorder, severe: Status: Acute Code(s): F16.20 - Hallucinogen dependence, uncomplicated (4) Osteoporosis: Status: Acute Code(s): M81.0 - Age-related osteoporosis without current pathological fracture (5) Left displaced femoral neck fracture: Status: Acute Code(s): S72.002A - Fracture of unspecified part of neck of left femur, initial encounter for closed fracture (6) Closed fracture of left hip: Status: Acute Qualifiers: Encounter type: initial encounter Qualified Code(s): S72.002A - Fracture of unspecified part of neck of left femur, initial encounter for closed fracture Code(s): S72.002A - Fracture of unspecified part of neck of left femur, initial encounter for closed fracture Plan Patient is a 27-year-old male with history of chronic depression, anxiety, s uicidal ideation,early onset Osteoporosis and psychedelics drug abuse who presents for suicide attempt in the face of depression, relational strife and intoxication on Psylisibin. -patient seems mostly to be struggling with chronic depression and anxiety and SI, which is also chronic exacerbated by drug use; patient made a comment about suicide due to worries about nuclear war however this seems most likely in the context of intoxication; will continue to explore history of anxiety, paranoid thinking PARAS -for now will continue on Prozac however will likely increase dose as patient is amenable to treatment; agrees to outpt therapy -will admit for safety medication management Plan: CV Q 15 minute checks Increase to Prozac 40 mg daily; will likely titrate Continue hydroxyzine p.r.n. for anxiety Will gather collateral Will continue to explore other medication options -will monitor LFTs Patient Financial Services Coordinator reviewed [facility] ED note: ED at [facility] ED provider evaluated patient and determined patient did not need imaging as ?he did not have significant force on shoelaces used over door knob?? Acetaminophen level initially elevated but trending back towards normal; LFTs W NL Patient educated on: diagnosis, medication risk/benefits, substance abuse and therapeutic strategies Informed Consent: understands and further education needed Reason for continued inpatient stay Substantial Risk for: rapid decompensation and med/psych decompensation Statement Statement: I have reviewed the history and physical and performed a pertinent examination on my patient. No changes have occurred unless specified. If the History and Physical was not performed prior to admission, the Hospitalist's service will be consulted for completing the admission physical. Time Spent With Patient Time: Total time managing care of this patient today ____ minutes.
[2022-12-14] MEDS: cloNIDine HCL 0.1 MG TABLET PO ×2 (15:48→21:50)
[2022-12-14] MEDS: FLUoxetine HCl 20 MG CAPSULE PO (15:48)
[2022-12-14 16:34] LABS: Alanine Aminotransferase 22 U/L (0-40); Albumin Level 4.7 g/dL (3.5-5.0); Alkaline Phosphatase 78 U/L (39-117); Anion Gap 13 (12-20); Aspartate Amino Transferase 20 U/L (5-37); Bilirubin Total 0.5 mg/dL (0.0-1.0); Blood Urea Nitrogen 18 mg/dL (9-16); Calcium 9.5 mg/dL (8.4-10.2); Carbon Dioxide 33 mmol/L (22-29); Chloride 104 mmol/L (96-108); Estimated Glomerular Filt Rate > 60; Glucose Random 89 mg/dL (60-115); Potassium 3.7 mmol/L (3.3-5.1); Sodium 146 mmol/L (135-145); Total Protein 7.3 g/dL (6.5-8.0)
[2022-12-14 21:40] VITALS: BP 126/75; PULSE 102; TEMP 36.2; O2SAT 99
[2022-12-14] MEDS: traZODone HCL 50 MG TABLET PO (21:51)
[2022-12-15 08:40] VITALS: BP 104/69; PULSE 100; RESP 18; TEMP 36.3; O2SAT 98
[2022-12-15] MEDS: FLUoxetine HCl 20 MG CAPSULE 40 MG PO (08:42)
[2022-12-15] MEDS: cloNIDine HCL 0.1 MG TABLET PO ×3 (08:44→18:01)
[2022-12-15 09:14] LABS: Alanine Aminotransferase 30 U/L (0-40); Alkaline Phosphatase 68 U/L (39-117); Anion Gap 11 (12-20); Aspartate Amino Transferase 28 U/L (5-37); Bilirubin Total 0.6 mg/dL (0.0-1.0); Blood Urea Nitrogen 21 mg/dL (9-16); Calcium 9.4 mg/dL (8.4-10.2); Carbon Dioxide 31 mmol/L (22-29); Chloride 106 mmol/L (96-108); Cholesterol 172 mg/dL; Creatinine Clr Calc Pharmacy 100.1; Estimated Glomerular Filt Rate > 60; Glucose Fasting 94 mg/dL (60-99); HDL Cholesterol 60 mg/dL; LDL Cholesterol Calculated 100 mg/dl; Magnesium 1.9 mg/dL (1.6-2.6); Potassium 4.4 mmol/L (3.3-5.1); Sodium 144 mmol/L (135-145); Total Protein 6.1 g/dL (6.5-8.0); Triglycerides 64 mg/dL
[2022-12-15 09:19] LABS: Estimated Average Glucose 103 mg/dL; Hemoglobin A1c % 5.2 %
[2022-12-15 09:43] LABS: Folate 13.1 ng/mL (> or = 4.0); Thyroid Stimulating Hormone 0.56 uIU/mL (0.32-4.0); Vitamin B12 410 pg/mL (200-900)
--- NOTE | 2022-12-15 10:26 | P.PNPSI_ITS ---
Subjective Subjective Date of Service: 12/15/22 Reason For Visit: Persistent depressive disorder Interim History: met w/ patient; discussed in teams discussed hx of depression and anxiety further which has been present since grade school; most of life dysthymic with episodic bouts of severe depression; again, no hx of manic episodes. Chronic SI which is daily since adolescence; he says he's used to it though sometimes it gets overwhelming and he makes plans.?Chronic self-deprecating thoughts; worries about future of world, climate change...No AVH. Pt remains depressed and feeling suicidal; he is battling despair and thoughts of given up, and even feels regrets recent attempt did not work; conversely he also says he's safe on the unit and wants treatment; he shares about postiive hx of therapy where he experienced hope and is trying to focus on that as possible now; also shares how that he knows how deeply his suicide would hurt his and family whom he loves and says this is a protective factor. Pt shares how he's been ambivalent about western medications for years however is now open to whatever would help w/ depression. says Prozac was initially helpful...Disc ussed TMS as well. Discussed Mushroom abuse and until 1 month ago, use was only 1-2x per year; rec ent worsening of anxiety/depression increased abuse as coping tool. Graduated H.S; some college; shared hx of relationships with family; close to brothers, mother; though hx of strained relationships, now very close -worries about medical issues constant drag on mood Mental Status Exam Mental Status Exam Narrative: Pt is alert and oriented; behavior is cooperative, friendly and calm; patient is not in distress; dressed in casual attire, wool cap, shaved head, adequate hygiene; mood is described as depressed, anxious and affect congruent, downcast; eye contact appropriate; Speech is little bit slowed, little quiet, little bit latent; psychomotor retardation present; thought process is goal directed; Thought content is on treatment, battling self-deprecating thoughts; otherwise pertinent to relevant topics and without any delusional content, paranoid ideations or grandiosity; passive SI; no HI. There is no evidence of perceptual disturbance and denies AVH. Patients insight and judgment are impaired. Diagnostics Vital Signs (24Hr): Vital Signs - 24 hr 12/14/22 21:40 Temperature 97.2 F Pulse Rate 102 H Blood Pressure 126/75 Pulse Oximetry 99 Oxygen Delivery Method Room Air BMI result Body Mass Index 18.1 Labs 12/15/22 08:08 Labs: Laboratory Results - last 48 hr 12/14/22 12/15/22 12/15/22 16:10 08:08 08:08 Sodium 146 H 144 Potassium 3.7 4.4 Chloride 104 106 Carbon Dioxide 33 H 31 H Anion Gap 13 11 L BUN 18 H 21 H Creatinine 0.90 0.89 Estim Creat Clear Calc 99.0 100.1 Estimated GFR > 60 > 60 Random Glucose 89 Fasting Glucose 94 Estimat Average Glucose 103 Hemoglobin A1c % 5.2 Calcium 9.5 D 9.4 Magnesium 1.9 Total Bilirubin 0.5 0.6 AST 20 28 ALT 22 30 Alkaline Phosphatase 78 68 Total Protein 7.3 6.1 L Albumin 4.7 4.0 Triglycerides 64 Cholesterol 172 LDL Cholesterol, Calc 100 HDL Cholesterol 60 Vitamin B12 410 Folate 13.1 TSH 0.56 Medications Medications Current Medications Acetaminophen (Acetaminophen 325 Mg Tablet) 650 mg PO Q6H PRN PRN Reason: Headache/Pain Mild Scale (1-3) Al Hydroxide/Mg Hydroxide (Magnesium Hydrox/Alum Hydrox 30 Ml Oral.Susp) 30 ml PO Q6H PRN PRN Reason: Heartburn/Nausea Clonidine HCl (Clonidine Hcl 0.1 Mg Tablet) 0.1 mg PO Q4H PRN; Protocol PRN Reason: anxiety Last Admin: 12/15/22 08:44 Dose: 0.1 mg Fluoxetine HCl (Fluoxetine Hcl 20 Mg Capsule) 40 mg PO DAILY [facility] Last Admin: 12/15/22 08:42 Dose: 40 mg Magnesium Hydroxide (Milk Of Magnesia 30 Ml Oral.Susp) 30 ml PO DAILY PRN PRN Reason: Constipation Trazodone HCl (Trazodone Hcl 50 Mg Tablet) 50 mg PO BEDTIME MRX1 PRN PRN Reason: Insomnia Last Admin: 12/14/22 21:51 Dose: 50 mg Allergies Allergies Allergy/AdvReac Type Severity Reaction Status Date / Time No Known Allergies Allergy Verified 04/29/22 08:49 Assessment & Plan Assessment & Plan (1) MDD (major depressive disorder), recurrent episode, severe: Status: Acute Code(s): F33.2 - Major depressive disorder, recurrent severe without psychotic features (2) Anxiety: Status: Acute Code(s): F41.9 - Anxiety disorder, unspecified (3) Hallucinogenic mushrooms use disorder, severe: Status: Acute Code(s): F16.20 - Hallucinogen dependence, uncomplicated (4) Osteoporosis: Status: Acute Code(s): M81.0 - Age-related osteoporosis without current pathological fracture (5) Left displaced femoral neck fracture: Status: Acute Code(s): S72.002A - Fracture of unspecified part of neck of left femur, initial encounter for closed fracture (6) Closed fracture of left hip: Qualifiers: Encounter type: initial encounter Qualified Code(s): S72.002A - Fractu re of unspecified part of neck of left femur, initial encounter for closed fracture Status: Acute Code(s): S72.002A - Fracture of unspecified part of neck of left femur, initial encounter for closed fracture Plan Patient is a 27-year-old male with history of chronic depression, anxiety, suicidal ideation,early onset Osteoporosis and psychedelics drug abuse who presents for suicide attempt in the face of depression, relational strife and intoxication on Psylisibin. -patient seems mostly to be struggling with chronic depression and anxiety and SI, which is also chronic exacerbated by drug use; patient made a comment about suicide due to worries about nuclear war however this seems most likely in the context of intoxication; will continue to explore history of anxiety, paranoid thinking PARAS -for now will continue on Prozac however will likely increase dose as patient is amenable to treatment; agrees to outpt therapy -will admit for safety medication management Hospital Course: 12/15 discussed hx of depression and anxiety further which has been present since grade school; most of life dysthymic with episodic bouts of severe depression; again, no hx of manic episodes. Chronic SI which is daily since adolescence; he says he's used to it though sometimes it gets overwhelming and he makes plans. Chronic self-deprecating thoughts; worries about future of world, climate change...worries about medical issues constant drag on mood Currently Pt remains depressed and feeling suicidal; he is battling despair and thoughts of given up, and even feels regrets recent attempt did not work; conversely he also says he's safe on the unit and wants treatment; he shares about postiive hx of therapy where he experienced hope and is trying to focus on that as possible now; also shares how that he knows how deeply his suicide would hurt his and family whom he loves and says this is a protective factor. Pt shares how he's been ambivalent about western medications for years however is now open to whatever would help w/ depression. says Prozac was initially helpful...Discussed TMS as well.? Graduated H.S; some college; close to brothers, mother; though hx of strained relationships, now very close Plan: CV Q 15 minute checks Continue Prozac 40 mg daily; may titrate Will consider adding mood stabilizer (chronic SI debilitating; pt has decades of chronic SI leading to unsafe behaviors; though no manic episodes, pt is biologically loaded for bipolar making lithium an option). Add clonidine prn for anxiety (hydroxyzine not helpful) Will gather collateral Will continue to explore other medication options -will monitor LFTs System Consultant reviewed [facility] ED note: ED at [facility] ED provider evaluated patient and determined patient did not need imaging as ?he did not have significant force on shoelaces used over door knob?? Acetaminophen level initially elevated but trending back towards normal; LFTs WNL Patient educated on: diagnosis, medication risk/benefits, substance abuse, TMS, therapeutic strategies and medical condition Informed Consent: understands Reason for continued inpatient stay Substantial Risk for: harm to self Time Spent With Patient Time: Total time managing care of this patient today ____ minutes.
[2022-12-15 13:40] VITALS: BP 108/69; PULSE 62
[2022-12-15 17:59] VITALS: BP 104/58; PULSE 95; TEMP 36.3
[2022-12-15] MEDS: traZODone HCL 50 MG TABLET PO (21:08)
[2022-12-16] MEDS: cloNIDine HCL 0.1 MG TABLET PO (05:47)
--- NOTE | 2022-12-16 06:54 | PC.NURSE ---
DURING 644 CHECKS, MHA FOUND PT ON FLOOR IN BATHROOM. PT HAD TIED HOSPITAL PANTS AROUND HIS NECK IN ATTEMPT TO HARM HIMSELF. MHA AND RN WERE ABLE TO UNTIE THE PANTS FROM THE PTS NECK. PT SAT UP AND WALKED TO HIS BED. VITAL SIGNS WERE TAKEN BY RN. VITALS STABLE. PT REPORTS NO DIFFICULTY SWALLOWING. NO DIZZINESS OR LIGHTHEADEDNESS. MODERATE REDNESS AROUND THE NECK. MD MADE AWARE. PT PUT ON ONE TO ONE OBSERVATION.
[2022-12-16 08:30] VITALS: BP 77/44; PULSE 58; RESP 14; TEMP 36.6; O2SAT 98
[2022-12-16] MEDS: FLUoxetine HCl 20 MG CAPSULE 40 MG PO (08:32)
--- NOTE | 2022-12-16 10:01 | P.PNPSI_ITS ---
Subjective Subjective Date of Service: 12/16/22 Reason For Visit: Persistent depressive disorder Interim History: today woke up depressed, thoughts it's not worth living, self-deprecating thoughts; went to room and saw pants, impulsively tied around his neck to strangle self; he said this was unplanned; staff came across pt and intervened. Acknowledges he's been looking around unit for ways to self-harm, though has resisted until now. pt continues to want tx and relief; discussed medication options and he agrees to augment prozac with Bevier; discussed risks/side-effects Mental Status Exam Mental Status Exam Narrative: Pt is alert and oriented; behavior is cooperative, calm; patient is not in distress; dressed in casual attire, wool cap, shaved head, adequate hygiene; mood is described as depressed, anxious and affect congruent, downcast; eye contact appropriate; Speech is little bit slowed, little quiet, little bit latent; psychomotor retardation present; thought process is goal directed; Thought content is on treatment, battling self-deprecating thoughts; otherwise pertinent to relevant topics and without any delusional content, paranoid ideations or grandiosity; passive SI; no HI. There is no evidence of perceptual disturbance and denies AVH. Patients insight and judgment are impaired. Diagnostics Vital Signs (24Hr): Vital Signs - 24 hr 12/15/22 13:40 12/15/22 17:59 12/16/22 06:00 Temperature 97.4 F 97.9 F Pulse Rate 62 95 58 Respiratory Rate 14 Blood Pressure 108/69 104/58 L 77/44 L Pulse Oximetry 98 Oxygen Delivery Method Room Air BMI result Body Mass Index 18.1 Labs 12/15/22 08:08 Labs: Laboratory Results - last 48 hr 12/14/22 12/15/22 12/15/22 16:10 08:08 08:08 Sodium 146 H 144 Potassium 3.7 4.4 Chloride 104 106 Carbon Dioxide 33 H 31 H Anion Gap 13 11 L BUN 18 H 21 H Creatinine 0.90 0.89 Estim Creat Clear Calc 99.0 100.1 Estimated GFR > 60 > 60 Random Glucose 89 Fasting Glucose 94 Estimat Average Glucose 103 Hemoglobin A1c % 5.2 Calcium 9.5 D 9.4 Magnesium 1.9 Total Bilirubin 0.5 0.6 AST 20 28 ALT 22 30 Alkaline Phosphatase 78 68 Total Protein 7.3 6.1 L Albumin 4.7 4.0 Triglycerides 64 Cholesterol 172 LDL Cholesterol, Calc 100 HDL Cholesterol 60 Vitamin B12 410 Folate 13.1 TSH 0.56 Medications Medications Current Medications Acetaminophen (Acetaminophen 325 Mg Tablet) 650 mg PO Q6H PRN PRN Reason: Headache/Pain Mild Scale (1-3) Al Hydroxide/Mg Hydroxide (Magnesium Hydrox/Alum Hydrox 30 Ml Oral.Susp) 30 ml PO Q6H PRN PRN Reason: Heartburn/Nausea Clonidine HCl (Clonidine Hcl 0.1 Mg Tablet) 0.05 mg PO Q4H PRN; Protocol PRN Reason: anxiety Fluoxetine HCl (Fluoxetine Hcl 20 Mg Capsule) 40 mg PO DAILY [facility] Last Admin: 12/16/22 08:32 Dose: 40 mg Magnesium Hydroxide (Milk Of Magnesia 30 Ml Oral.Susp) 30 ml PO DAILY PRN PRN Reason: Constipation Trazodone HCl (Trazodone Hcl 50 Mg Tablet) 50 mg PO BEDTIME MRX1 PRN PRN Reason: Insomnia Last Admin: 12/15/22 21:08 Dose: 50 mg Allergies Allergies Allergy/AdvReac Type Severity Reaction Status Date / Time No Known Allergies Allergy Verified 04/29/22 08:49 Assessment & Plan Assessment & Plan (1) MDD (major depressive disorder), recurrent episode, severe: Status: Acute Code(s): F33.2 - Major depressive disorder, recurrent severe without psychotic features (2) Anxiety: Status: Acute Code(s): F41.9 - Anxiety disorder, unspecified (3) Hallucinogenic mushrooms use disorder, severe: Status: Acute Code(s): F16.20 - Hallucinogen dependence, uncomplicated (4) Osteoporosis: Status: Acute Code(s): M81.0 - Age-related osteoporosis without current pathological fracture (5) Left displaced femoral neck fracture: Status: Acute Code(s): S72.002A - Fracture of unspecified part of neck of left femur, initial encounter for closed fracture (6) Closed fracture of left hip: Qualifiers: Encounter type: initial encounter Qualified Code(s): S72.002A - Fracture of unspecified part of neck of left femur, initial encounter for closed fracture Status: Acute Code(s): S72.002A - Fracture of unspecified part of neck of left femur, initial encounter for closed fracture Plan Patient is a 27-year-old male with history of chronic depression, anxiety, suicidal ideation,early onset Osteoporosis and psychedelics drug abuse who presents for suicide attempt in the face of depression, relational strife and intoxication on Psylisibin. -patient seems mostly to be struggling with chronic depression and anxiety and SI, which is also chronic exacerbated by drug use; patient made a comment about suicide due to worries about nuclear war however this seems most likely in the context of intoxication; will continue to explore history of anxiety, paranoid thinking PARAS -for now will continue on Prozac however will likely increase dose as patient is amenable to treatment; agrees to outpt therapy -will admit for safety medication management Hospital Course: 12/15 discussed hx of depression and anxiety further which has been present since grade school; most of life dysthymic with episodic bouts of severe depression; again, no hx of manic episodes. Chronic SI which is daily since adolescence; he says he's used to it though sometimes it gets overwhelming and he makes plans. Chronic self-deprecating thoughts; worries about future of world, climate change...worries about medical issues constant drag on mood Currently Pt remains depressed and feeling suicidal; he is battling despair and thoughts of given up, and even feels regrets recent attempt did not work; conversely he also says he's safe on the unit and wants treatment; he shares about postiive hx of therapy where he experienced hope and is trying to focus on that as possible now; also shares how that he knows how deeply his suicide would hurt his and family whom he loves and says this is a protective factor. Pt shares how he's been ambivalent about western medications for years however is now open to whatever would help w/ depression. says Prozac was initially helpful...Discussed TMS as well.? 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 will start Bevier for depression given severity, chronic SI and biological loading for bipolar (though no hx of myriam, bipolar depression possibility) Plan: CV 1:1 for safety Continue Prozac 40 mg daily; may titrate START Bevier ER 300mg qhs: (pt has decades of chronic SI leading to unsafe behaviors; although no manic episodes, pt is biologically loaded for bipolar making lithium an option). Lowered to clonidine 0.05mg since higher dose causes hypotension (prn for anxiety (hydroxyzine not helpful)) Will gather collateral Will continue to explore other medication options -will monitor LFTs Steam Table Worker reviewed [facility] ED note: ED at [facility] ED provider evaluated patient and determined patient did not need imaging as ?he did not have significant force on shoelaces used over door knob?? Acetaminophen level initially elevated but trending back towards normal; LFTs WNL Patient educated on: diagnosis and medication risk/benefits Informed Consent: understands Reason for continued inpatient stay Substantial Risk for: harm to self Time Spent With Patient Time: Total time managing care of this patient today ____ minutes.
[2022-12-16 10:15] VITALS: BP 110/73; PULSE 103; O2SAT 100
[2022-12-16] MEDS: cloNIDine HCL 0.1 MG TABLET 0.05 MG PO ×2 (13:02→17:33)
[2022-12-16] MEDS: Lithium Carbonate ER 300 MG TABLET.ER PO (20:29)
[2022-12-16] MEDS: traZODone HCL 50 MG TABLET PO (20:30)
[2022-12-17] MEDS: FLUoxetine HCl 20 MG CAPSULE 40 MG PO (07:55)
[2022-12-17 08:15] VITALS: BP 86/53; PULSE 73; RESP 18; TEMP 36.4; O2SAT 98
[2022-12-17 11:12] LABS: Lithium 0.22 mmol/L (0.60-1.20)
[2022-12-17] MEDS: hydrOXYzine HCL 25 MG TABLET PO ×2 (11:53→17:28)
[2022-12-17 18:00] VITALS: BP 118/68; PULSE 92; RESP 16; TEMP 36.6; O2SAT 98
[2022-12-17] MEDS: Lithium Carbonate ER 300 MG TABLET.ER PO (21:29)
[2022-12-17] MEDS: traZODone HCL 50 MG TABLET PO (22:14)
--- NOTE | 2022-12-17 23:24 | P.PNPSI_ITS ---
Subjective Subjective Date of Service: 12/17/22 Reason For Visit: Persistent depressive disorder Subjective Notes: Conditional Voluntary Interim History: pt more engaged denies current active si seems grateful regarding intervention after suiicde attempt on 1.1 more agreeable to tx taking in information re depression and tx Medication Compliance: Yes Mental Status Exam Mental Status Exam Patient Appearance: Well Grooomed Patient Orientation: Person, Place, Time and Situation Level of Consciousness: Awake and Appropriate Mood Description: Depressed and Blunted Affect Description: Appropriate and Constricted Patient Cognition Impaired: No Ability to Follow Directions: Good Speech Pattern: Clear Memory Description: Intact Hallucinations: None Delusions: Not Present Thought Process: Intact, Rumination and Goal Oriented Thought Content: positive for Goal Oriented, positive for Preoccupation, positive for Suicidal Ideation (passive ) and negative for Homicidal Ideation Depressive Symptoms: Increased Anxiety, Increased Irritability, Loss of Int. in Activity, Feelings of Worthlessness, Hopelessness, Increased Fatigue, Thoughts of /Suicide, Loss of Energy and Difficulty Concentrating Judgement: Fair Judgement and Insight: taking in information more reflective Diagnostics Vital Signs (24Hr): Vital Signs - 24 hr 12/17/22 08:15 12/17/22 18:00 Temperature 97.6 F 97.8 F Pulse Rate 73 92 Respiratory Rate 18 16 Blood Pressure 86/53 L 118/68 Pulse Oximetry 98 98 Oxygen Delivery Method Room Air Room Air BMI result Body Mass Index 18.1 Labs 12/15/22 08:08 Labs: Laboratory Results - last 48 hr 12/17/22 08:14 [place] 0.22 L Medications Medications Current Medications Acetaminophen (Acetaminophen 325 Mg Tablet) 650 mg PO Q6H PRN PRN Reason: Headache/Pain Mild Scale (1-3) Al Hydroxide/Mg Hydroxide (Magnesium Hydrox/Alum Hydrox 30 Ml Oral.Susp) 30 ml PO Q6H PRN PRN Reason: Heartburn/Nausea Clonidine HCl (Clonidine Hcl 0.1 Mg Tablet) 0.05 mg PO Q4H PRN; Protocol PRN Reason: anxiety Last Admin: 12/16/22 17:33 Dose: 0.05 mg Fluoxetine HCl (Fluoxetine Hcl 20 Mg Capsule) 40 mg PO DAILY [facility] Last Admin: 12/17/22 07:55 Dose: 40 mg Hydroxyzine HCl (Hydroxyzine Hcl 25 Mg Tablet) 25 mg PO Q6H PRN PRN Reason: anxiety/restlessness Last Admin: 12/17/22 17:28 Dose: 25 mg [place] Carbonate ([place] Carbonate Er 300 Mg Tablet.Er) 300 mg PO BEDTIME [facility] Last Admin: 12/17/22 21:29 Dose: 300 mg Magnesium Hydroxide (Milk Of Magnesia 30 Ml Oral.Susp) 30 ml PO DAILY PRN PRN Reason: Constipation Trazodone HCl (Trazodone Hcl 50 Mg Tablet) 50 mg PO BEDTIME MRX1 PRN PRN Reason: Insomnia Last Admin: 12/17/22 22:14 Dose: 50 mg Allergies Allergies Allergy/AdvReac Type Severity Reaction Status Date / Time No Known Allergies Allergy Verified 04/29/22 08:49 Assessment & Plan Assessment & Plan (1) MDD (major depressive disorder), recurrent episode, severe: Status: Acute Code(s): F33.2 - Major depressive disorder, recurrent severe without psychotic features (2) Anxiety: Status: Acute Code(s): F41.9 - Anxiety disorder, unspecified (3) Hallucinogenic mushrooms use disorder, severe: Status: Acute Code(s): F16.20 - Hallucinogen dependence, uncomplicated (4) Osteoporosis: Status: Acute Code(s): M81.0 - Age-related osteoporosis without current pathological fracture (5) Left displaced femoral neck fracture: Status: Acute Code(s): S72.002A - Fracture of unspecified part of neck of left femur, initial encounter for closed fracture (6) Closed fracture of left hip: Qualifiers: Encounter type: initial encounter Qualified Code(s): S72.002A - Fracture of unspecified part of neck of left femur, initial encounter for closed fracture Status: Acute Code(s): S72.002A - Fracture of unspecified part of neck of left femur, initial encounter for closed fracture Plan Patient is a 27-year-old male with history of chronic depression, anxiety, suicidal ideation,early onset Osteoporosis and psychedelics drug abuse who presents for suicide attempt in the face of depression, relational strife and intoxication on Psylisibin. -patient seems mostly to be struggling with chronic depression and anxiety and SI, which is also chronic exacerbated by drug use; patient made a comment about suicide due to worries about nuclear war however this seems most likely in the context of intoxication; will continue to explore history of anxiety, paranoid thinking PARAS -for now will continue on Prozac however will likely increase dose as patient is amenable to treatment; agrees to outpt therapy -will admit for safety medication management Hospital Course: 12/15 discussed hx of depression and anxiety further which has been present since grade school; most of life dysthymic with episodic bouts of severe depression; again, no hx of manic episodes. Chronic SI which is daily since adolescence; he says he's used to it though sometimes it gets overwhelming and he makes plans. Chronic self-deprecating thoughts; worries about future of world, climate change...worries about medical issues constant drag on mood Currently Pt remains depressed and feeling suicidal; he is battling despair and thoughts of given up, and even feels regrets recent attempt did not work; conversely he also says he's safe on the unit and wants treatment; he shares about postiive hx of therapy where he experienced hope and is trying to focus on that as possible now; also shares how that he knows how deeply his suicide would hurt his and family whom he loves and says this is a protective factor. Pt shares how he's been ambivalent about western medications for years however is now open to whatever would help w/ depression. says Prozac was initially helpful...Discussed TMS as well.? 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 will start [place] for depression given severity, chronic SI and biological loading for bipolar (though no hx of myriam, bipolar depression possibility) 12/17/22 No current suicidal behavior accepting prozac and lithium on 1.1 would benefit from getting info on potential tx for osteoporosis Plan: CV 1:1 for safety Continue Prozac 40 mg daily; may titrate START [place] ER 300mg qhs: (pt has decades of chronic SI leading to unsafe behaviors; although no manic episodes, pt is biologically loaded for bipolar making lithium an option). Lowered to clonidine 0.05mg since higher dose causes hypotension (prn for anxiety (hydroxyzine not helpful)) Will gather collateral Will continue to explore other medication options -will monitor LFTs Tool And Die Assembler reviewed [facility] ED note: ED at [facility] ED provider evaluated patient and determined patient did not need imaging as ?he did not have significant force on shoelaces used over door knob?? Acetaminophen level initially elevated but trending back towards normal; LFTs WNL Reason for continued inpatient stay Substantial Risk for: harm to self Time Spent With Patient Time: Total time managing care of this patient today ____ minutes.
[2022-12-18 07:49] LABS: MANUAL DIFF FLAG NO
[2022-12-18 07:52] LABS: Basophils Absolute Auto 0.1 X10*3/uL (0.0-0.2); Basophils Percent Auto 0.8 % (0-2); Eosinophils Absolute Auto 0.2 X10*3/uL (0.0-0.4); Eosinophils Percent Auto 2.7 % (0-4); Hemoglobin 13.4 g/dl (14.0-18.0); Imm Gran Abs Auto 0.02 X10*3/uL (0.00-0.03); Imm Gran Pct Auto 0.3 % (0.0-0.4); Lymphocytes Absolute Auto 2.1 X10*3/uL (1.2-4.9); Mean Corpuscular HGB Conc 33.5 g/dl (31.0-36.0); Mean Corpuscular Hemoglobin 32.1 pg (27.0-33.0); Mean Corpuscular Volume 95.9 fL (80.0-98.0); Mean Platelet Volume 9.9 fL (9.4-12.4); Monocytes Absolute Auto 0.7 X10*3/uL (0.1-1.2); Monocytes Percent Auto 11.8 % (2-11); Neutrophils Absolute Auto 3.1 x10*3/uL (2.0-8.3); Neutrophils Percent Auto 50.4 % (45-73); Platelet Count 150 X10*3/uL (160-400); Red Blood Count 4.17 X10*6/uL (4.60-5.80); White Blood Count 6.2 X10*3/uL (4.8-10.8)
[2022-12-18] MEDS: FLUoxetine HCl 20 MG CAPSULE 40 MG PO (08:26)
[2022-12-18] MEDS: hydrOXYzine HCL 25 MG TABLET PO ×2 (08:43→17:25)
--- NOTE | 2022-12-18 08:45 | PC.NURSE ---
Around 0730, pt was in treatment room with 1:1 observer and had a syncopal episode during blood draw. Pt vitals 97.0 99% 47 82/42 R. Given apple juice, juice pack and escorted to his room. Vitals retaken, VSS. Reported that this has happened in the past.
[2022-12-18 08:46] LABS: Vitamin D 25-OH Total 23.5 ng/mL (>30)
[2022-12-18 08:49] VITALS: BP 101/56; PULSE 70; RESP 18; TEMP 36.8; O2SAT 99
[2022-12-18 15:59] VITALS: BP 101/55; PULSE 79; TEMP 36.5
[2022-12-18] MEDS: Lithium Carbonate ER 300 MG TABLET.ER PO (20:48)
[2022-12-18] MEDS: traZODone HCL 50 MG TABLET PO ×2 (20:49→22:41)
--- NOTE | 2022-12-18 22:49 | HO.PSYCHPN ---
Subjective Subjective Date of Service: 12/18/22 Reason For Visit: Persistent depressive disorder Interim History: Patient seen and discussed. Continues on 1:1 for safety after his suicide attempt on the unit. Patient tolerating initiation f Li. Hypotension is chronic and familial. He is asymptomatic although today during the blood draw he had a syncopal episode which has happened before to him. He is encouraged to increase fluid intake. Educated on effects of Li on kidneys. Review of Systems Review of Systems General: No fevers, malaise, unintentional weight loss HEENT: No blurred vision, diplopia. No sore throat, nasal congestion, rhinorrhea, sinus pain, ear pain Cardiovascular: No chest pain, palpitations, or leg edema Respiratory: No shortness of breath, wheezing, cough GI: No abdominal pain, nausea, vomiting, diarrhea, constipation, melena, hematochezia : No dysuria, hematuria, increased urinary frequency, decreased urinary output MSK: No myalgia, back pain Neuro: No headaches, weakness, paresthesias Skin: No rashes or lesions Mental Status Exam Mental Status Exam Narrative: Pt is alert and oriented; behavior is cooperative, calm; patient is not in distress; dressed in casual attire, wool cap, shaved head, adequate hygiene; mood is described as depressed, anxious and affect congruent, downcast; eye contact appropriate; Speech is little bit slowed, little quiet, little bit latent; psychomotor retardation present; thought process is goal directed; Thought content is on treatment, battling self-deprecating thoughts; otherwise pertinent to relevant topics and without any delusional content, paranoid ideations or grandiosity; passive SI; no HI. There is no evidence of perceptual disturbance and denies AVH. Patients insight and judgment are impaired. Patient Appearance: Well Grooomed Patient Orientation: Person, Place, Time and Situation Level of Consciousness: Awake and Appropriate Mood Description: Depressed and Blunted Affect Description: Appropriate and Constricted Patient Cognition Impaired: No Ability to Follow Directions: Good Speech Pattern: Clear Memory Description: Intact Diagnostics Vital Signs (24Hr): Vital Signs - 24 hr 12/18/22 08:49 12/18/22 15:59 Temperature 98.2 F 97.7 F Pulse Rate 70 79 Respiratory Rate 18 Blood Pressure 101/56 L 101/55 L Pulse Oximetry 99 Oxygen Delivery Method Room Air BMI result Body Mass Index 18.1 Labs 12/18/22 07:40 12/15/22 08:08 Labs: Laboratory Results - last 48 hr 12/17/22 12/18/22 12/18/22 08:14 07:40 07:40 WBC 6.2 RBC 4.17 L Hgb 13.4 L Hct 40.0 L MCV 95.9 MCH 32.1 MCHC 33.5 RDW 13.0 Plt Count 150 L MPV 9.9 Immature Gran % (Auto) 0.3 Neut % (Auto) 50.4 Lymph % (Auto) 34.0 [place] % (Auto) 11.8 H Eos % (Auto) 2.7 Baso % (Auto) 0.8 Lymph # (Auto) 2.1 [place] # (Auto) 0.7 Eos # (Auto) 0.2 Baso # (Auto) 0.1 Abs Immat Gran (auto) 0.02 Absolute Neuts (auto) 3.1 Absolute Nucleated RBC 0.000 Nucleated RBC % (auto) 0.0 25-OH Vitamin D Total 23.5 [place] 0.22 L Medications Medications Current Medications Acetaminophen (Acetaminophen 325 Mg Tablet) 650 mg PO Q6H PRN PRN Reason: Headache/Pain Mild Scale (1-3) Al Hydroxide/Mg Hydroxide (Magnesium Hydrox/Alum Hydrox 30 Ml Oral.Susp) 30 ml PO Q6H PRN PRN Reason: Heartburn/Nausea Clonidine HCl (Clonidine Hcl 0.1 Mg Tablet) 0.05 mg PO Q4H PRN; Protocol PRN Reason: anxiety Last Admin: 12/16/22 17:33 Dose: 0.05 mg Fluoxetine HCl (Fluoxetine Hcl 20 Mg Capsule) 40 mg PO DAILY SWATHI Last Admin: 12/18/22 08:26 Dose: 40 mg Hydroxyzine HCl (Hydroxyzine Hcl 25 Mg Tablet) 25 mg PO Q6H PRN PRN Reason: anxiety/restlessness Last Admin: 12/18/22 17:25 Dose: 25 mg [place] Carbonate ([place] Carbonate Er 300 Mg Tablet.Er) 300 mg PO BEDTIME SWATHI Last Admin: 12/18/22 20:48 Dose: 300 mg Magnesium Hydroxide (Milk Of Magnesia 30 Ml Oral.Susp) 30 ml PO DAILY PRN PRN Reason: Constipation Trazodone HCl (Trazodone Hcl 50 Mg Tablet) 50 mg PO BEDTIME MRX1 PRN PRN Reason: Insomnia Last Admin: 12/18/22 22:41 Dose: 50 mg Allergies Allergies Allergy/AdvReac Type Severity Reaction Status Date / Time No Known Allergies Allergy Verified 04/29/22 08:49 Assessment & Plan Assessment & Plan (1) MDD (major depressive disorder), recurrent episode, severe: Status: Acute Code(s): F33.2 - Major depressive disorder, recurrent severe without psychotic features (2) Anxiety: Status: Acute Code(s): F41.9 - Anxiety disorder, unspecified (3) Hallucinogenic mushrooms use disorder, severe: Status: Acute Code(s): F16.20 - Hallucinogen dependence, uncomplicated (4) Osteoporosis: Status: Acute Code(s): M81.0 - Age-related osteoporosis without current pathological fracture (5) Left displaced femoral neck fracture: Status: Acute Code(s): S72.002A - Fracture of unspecified part of neck of left femur, initial encounter for closed fracture (6) Closed fracture of left hip: Qualifiers: Encounter type: initial encounter Qualified Code(s): S72.002A - Fracture of unspecified part of neck of left femur, initial encounter for closed fracture Status: Acute Code(s): S72.002A - Fracture of unspecified part of neck of left femur, initial encounter for closed fracture Plan Patient is a 27-year-old male with history of chronic depression, anxiety, suicidal ideation,early onset Osteoporosis and psychedelics drug abuse who presents for suicide attempt in the face of depression, relational strife and intoxication on Psylisibin. -patient seems mostly to be struggling with chronic depression and anxiety and SI, which is also chronic exacerbated by drug use; patient made a comment about suicide due to worries about nuclear war however this seems most likely in the context of intoxication; will continue to explore history of anxiety, paranoid thinking PARAS -for now will continue on Prozac however will likely increase dose as patient is amenable to treatment; agrees to outpt therapy -will admit for safety medication management Hospital Course: 12/15 discussed hx of depression and anxiety further which has been present since grade school; most of life dysthymic with episodic bouts of severe depression; again, no hx of manic episodes. Chronic SI which is daily since adolescence; he says he's used to it though sometimes it gets overwhelming and he makes plans. Chronic self-deprecating thoughts; worries about future of world, climate change...worries about medical issues constant drag on mood Currently Pt remains depressed and feeling suicidal; he is battling despair and thoughts of given up, and even feels regrets recent attempt did not work; conversely he also says he's safe on the unit and wants treatment; he shares about postiive hx of therapy where he experienced hope and is trying to focus on that as possible now; also shares how that he knows how deeply his suicide would hurt his and family whom he loves and says this is a protective factor. Pt shares how he's been ambivalent about western medications for years however is now open to whatever would help w/ depression. says Prozac was initially helpful...Discussed TMS as well.? 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 will start [place] for depression given severity, chronic SI and biological loading for bipolar (though no hx of myriam, bipolar depression possibility) 12/17/22 No current suicidal behavior accepting prozac and lithium on 08.22 would benefit from getting info on potential tx for osteoporosis 12/18: Continue current tx plan. Plan: CV 1:1 for safety Continue Prozac 40 mg daily; may titrate START [place] ER 300mg qhs: (pt has decades of chronic SI leading to unsafe behaviors; although no manic episodes, pt is biologically loaded for bipolar making lithium an option). Lowered to clonidine 0.05mg since higher dose causes hypotension (prn for anxiety (hydroxyzine not helpful)) Will gather collateral Will continue to explore other medication options -will monitor LFTs Opal Polisher reviewed [facility] ED note: ED at [facility] ED provider evaluated patient and determined patient did not need imaging as ?he did not have significant force on shoelaces used over door knob?? Acetaminophen level initially elevated but trending back towards normal; LFTs WNL Reason for continued inpatient stay Substantial Risk for: harm to self and rapid decompensation Time Spent With Patient Time: Total time managing care of this patient today ____ minutes.
[2022-12-19] MEDS: hydrOXYzine HCL 25 MG TABLET PO ×3 (00:35→22:25)
[2022-12-19] MEDS: FLUoxetine HCl 20 MG CAPSULE 40 MG PO (08:23)
[2022-12-19 08:44] VITALS: BP 98/55; PULSE 70; RESP 16; TEMP 36.3; O2SAT 97
--- NOTE | 2022-12-19 09:29 | P.PNPSI_ITS ---
Subjective Subjective Date of Service: 12/19/22 Reason For Visit: Persistent depressive disorder Interim History: Patient seen and discussed. Continues on 1:1 for safety after his suicide a ttempt on the unit. Patient tolerating initiation of Li. Patient reports he talked to his aunt yesterday and she told him there is significant family history of bipolar disorder and depression in the family.We discussed Wyocena's benefits in terms of it being protective re suicide and also that given the biologic loading for bipolar disorder it is a good medication choice. He reports that he is feeling improved since starting. Review of Systems Review of Systems General: No fevers, malaise, unintentional weight loss HEENT: No blurred vision, diplopia. No sore throat, nasal congestion, rhinorrhea, sinus pain, ear pain Cardiovascular: No chest pain, palpitations, or leg edema Respiratory: No shortness of breath, wheezing, cough GI: No abdominal pain, nausea, vomiting, diarrhea, constipation, melena, hematochezia : No dysuria, hematuria, increased urinary frequency, decreased urinary output MSK: No myalgia, back pain Neuro: No headaches, weakness, paresthesias Skin: No rashes or lesions Mental Status Exam Mental Status Exam Narrative: Pt is alert and oriented; behavior is cooperative, calm; patient is not in distress; dressed in casual attire, wool cap, shaved head, adequate hygiene; mood is described as depressed, anxious and affect congruent, downcast; eye contact appropriate; Speech is little bit slowed, little quiet, little bit latent; psychomotor retardation present; thought process is goal directed; Thought content is on treatment, battling self-deprecating thoughts; otherwise pertinent to relevant topics and without any delusional content, paranoid ideations or grandiosity; passive SI; no HI. There is no evidence of perceptual disturbance and denies AVH. Patients insight and judgment are impaired. Patient Appearance: Well Grooomed Patient Orientation: Person, Place, Time and Situation Level of Consciousness: Awake and Appropriate Mood Description: Depressed and Blunted Affect Description: Appropriate and Constricted Patient Cognition Impaired: No Ability to Follow Directions: Good Speech Pattern: Clear Memory Description: Intact Diagnostics Vital Signs (24Hr): Vital Signs - 24 hr 12/18/22 15:59 12/19/22 08:44 Temperature 97.7 F 97.3 F Pulse Rate 79 70 Respiratory Rate 16 Blood Pressure 101/55 L 98/55 L Pulse Oximetry 97 Oxygen Delivery Method Room Air BMI result Body Mass Index 18.1 Labs 12/18/22 07:40 12/15/22 08:08 Labs: Laboratory Results - last 48 hr 12/17/22 12/18/22 12/18/22 08:14 07:40 07:40 WBC 6.2 RBC 4.17 L Hgb 13.4 L Hct 40.0 L MCV 95.9 MCH 32.1 MCHC 33.5 RDW 13.0 Plt Count 150 L MPV 9.9 Immature Gran % (Auto) 0.3 Neut % (Auto) 50.4 Lymph % (Auto) 34.0 [place] % (Auto) 11.8 H Eos % (Auto) 2.7 Baso % (Auto) 0.8 Lymph # (Auto) 2.1 [place] # (Auto) 0.7 Eos # (Auto) 0.2 Baso # (Auto) 0.1 Abs Immat Gran (auto) 0.02 Absolute Neuts (auto) 3.1 Absolute Nucleated RBC 0.000 Nucleated RBC % (auto) 0.0 25-OH Vitamin D Total 23.5 [place] 0.22 L Medications Medications Current Medications Acetaminophen (Acetaminophen 325 Mg Tablet) 650 mg PO Q6H PRN PRN Reason: Headache/Pain Mild Scale (1-3) Al Hydroxide/Mg Hydroxide (Magnesium Hydrox/Alum Hydrox 30 Ml Oral.Susp) 30 ml PO Q6H PRN PRN Reason: Heartburn/Nausea Clonidine HCl (Clonidine Hcl 0.1 Mg Tablet) 0.05 mg PO Q4H PRN; Protocol PRN Reason: anxiety Last Admin: 12/16/22 17:33 Dose: 0.05 mg Fluoxetine HCl (Fluoxetine Hcl 20 Mg Capsule) 40 mg PO DAILY [facility] Last Admin: 12/19/22 08:23 Dose: 40 mg Hydroxyzine HCl (Hydroxyzine Hcl 25 Mg Tablet) 25 mg PO Q6H PRN PRN Reason: anxiety/restlessness Last Admin: 12/19/22 00:35 Dose: 25 mg Wyocena Carbonate (Wyocena Carbonate Er 300 Mg Tablet.Er) 300 mg PO BEDTIME SWATHI Last Admin: 12/18/22 20:48 Dose: 300 mg Magnesium Hydroxide (Milk Of Magnesia 30 Ml Oral.Susp) 30 ml PO DAILY PRN PRN Reason: Constipation Trazodone HCl (Trazodone Hcl 50 Mg Tablet) 50 mg PO BEDTIME MRX1 PRN PRN Reason: Insomnia Last Admin: 12/18/22 22:41 Dose: 50 mg Allergies Allergies Allergy/AdvReac Type Severity Reaction Status Date / Time No Known Allergies Allergy Verified 04/29/22 08:49 Assessment & Plan Assessment & Plan (1) MDD (major depressive disorder), recurrent episode, severe: Status: Acute Code(s): F33.2 - Major depressive disorder, recurrent severe without psychotic features (2) Anxiety: Status: Acute Code(s): F41.9 - Anxiety disorder, unspecified (3) Hallucinogenic mushrooms use disorder, severe: Status: Acute Code(s): F16.20 - Hallucinogen dependence, uncomplicated (4) Osteoporosis: Status: Acute Code(s): M81.0 - Age-related osteoporosis without current pathological fracture (5) Left displaced femoral neck fracture: Status: Acute Code(s): S72.002A - Fracture of unspecified part of neck of left femur, initial encounter for closed fracture (6) Closed fracture of left hip: Qualifiers: Encounter type: initial encounter Qualified Code(s): S72.002A - Fracture of unspecified part of neck of left femur, initial encounter for closed fracture Status: Acute Code(s): S72.002A - Fracture of unspecified part of neck of left femur, initial encounter for closed fracture Plan Patient is a 27-year-old male with history of chronic depression, anxiety, suicidal ideation,early onset Osteoporosis and psychedelics drug abuse who presents for suicide attempt in the face of depression, relational strife and intoxication on Psylisibin. -patient seems mostly to be struggling with chronic depression and anxiety and SI, which is also chronic exacerbated by drug use; patient made a comment about suicide due to worries about nuclear war however this seems most likely in the context of intoxication; will continue to explore history of anxiety, paranoid thinking PAARS -for now will continue on Prozac however will likely increase dose as patient is amenable to treatment; agrees to outpt therapy -will admit for safety medication management Hospital Course: 12/15 discussed hx of depression and anxiety further which has been present since grade school; most of life dysthymic with episodic bouts of severe depression; again, no hx of manic episodes. Chronic SI which is daily since adolescence; he says he's used to it though sometimes it gets overwhelming and he makes plans. Chronic self-deprecating thoughts; worries about future of world, climate change...worries about medical issues constant drag on mood Currently Pt remains depressed and feeling suicidal; he is battling despair and thoughts of given up, and even feels regrets recent attempt did not work; conversely he also says he's safe on the unit and wants treatment; he shares about postiive hx of therapy where he experienced hope and is trying to focus on that as possible now; also shares how that he knows how deeply his suicide would hurt his and family whom he loves and says this is a protective factor. Pt shares how he's been ambivalent about western medications for years however is now open to whatever would help w/ depression. says Prozac was initially helpful...Discussed TMS as well.? 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 will start Wyocena for depression given severity, chronic SI and biological loading for bipolar (though no hx of myriam, bipolar depression possibility) 12/17/22 No current suicidal behavior accepting prozac and lithium on 1.1 would benefit from getting info on potential tx for osteoporosis 12/18: Continue current tx plan. 12/19: Consider titration of Li as tolerated. Continue current treatment plan. Plan: CV 1:1 for safety Continue Prozac 40 mg daily; may titrate START Wyocena ER 300mg qhs: (pt has decades of chronic SI leading to unsafe behaviors; although no manic episodes, pt is biologically loaded for bipolar making lithium an option). Lowered to clonidine 0.05mg since higher dose causes hypotension (prn for anxiety (hydroxyzine not helpful)) Will gather collateral Will continue to explore other medication options -will monitor LFTs Hydrogen Braze Furnace Operator reviewed [facility] ED note: ED at [facility] ED provider evaluated patient and determined patient did not need imaging as ?he did not have significant force on shoelaces used over door knob?? Acetaminophen level initially elevated but trending back towards normal; LFTs WNL Reason for continued inpatient stay Substantial Risk for: harm to self and rapid decompensation Time Spent With Patient Time: Total time managing care of this patient today ____ minutes.
[2022-12-19 15:34] VITALS: BP 110/63; PULSE 77; TEMP 36.4
[2022-12-19] MEDS: traZODone HCL 50 MG TABLET PO (22:23)
[2022-12-19] MEDS: Lithium Carbonate ER 300 MG TABLET.ER PO (22:23)
[2022-12-20] MEDS: hydrOXYzine HCL 25 MG TABLET PO ×2 (07:58→17:09)
[2022-12-20] MEDS: FLUoxetine HCl 20 MG CAPSULE 40 MG PO (07:58)
[2022-12-20 08:00] VITALS: BP 107/62; PULSE 60; RESP 18; TEMP 36.6; O2SAT 98
--- NOTE | 2022-12-20 10:12 | HO.PSYCHPN ---
Subjective Subjective Date of Service: 12/20/22 Reason For Visit: Persistent depressive disorder Interim History: met with patient; discussed with team feels much better; patient feels that depression is significantly better and he shares how he is much more hopeful, future oriented and feels he is actively climbing out of this depressive episode. Patient thinks it is mostly due to addition of lithium, however he also shares that he has had tremendous support from his family and feels much closer to them. Patient shares that this past weekend family talked about family history of mental illness and it turns out there is more bipolar on both sides of his family than was formally understood. Patient also talked with his father for the 1st time in over a year which patient said was helpful. Patient talked about looking forward to getting back to work. Denies any SI at all and feels safe on the unit and that he will be fine off a one-to-one and will reach out for help if he feels otherwise. Patient denies any medication side effects. Mental Status Exam Mental Status Exam Narrative: Pt is alert and oriented; behavior is cooperative, calm; patient is not in distress; dressed in casual attire, wool cap, shaved head, adequate hygiene; mood is described as good...better and affect congruent, noticeably brighter; eye contact appropriate; Speech is regular volume, rate and prosody; no psychomotor retardation present; thought process is goal directed; Thought content is on treatment, battling depression; otherwise pertinent to relevant topics and without any delusional content, paranoid ideations or grandiosity; no SI; no HI. There is no evidence of perceptual disturbance and denies AVH. Patients insight and judgment significantly improved and adequate. Diagnostics Vital Signs (24Hr): Vital Signs - 24 hr 12/19/22 15:34 12/20/22 08:00 Temperature 97.6 F 97.9 F Pulse Rate 77 60 Respiratory Rate 18 Blood Pressure 110/63 107/62 Pulse Oximetry 98 Oxygen Delivery Method Room Air BMI result Body Mass Index 18.1 Labs 12/18/22 07:40 12/15/22 08:08 Medications Medications Current Medications Acetaminophen (Acetaminophen 325 Mg Tablet) 650 mg PO Q6H PRN PRN Reason: Headache/Pain Mild Scale (1-3) Al Hydroxide/Mg Hydroxide (Magnesium Hydrox/Alum Hydrox 30 Ml Oral.Susp) 30 ml PO Q6H PRN PRN Reason: Heartburn/Nausea Clonidine HCl (Clonidine Hcl 0.1 Mg Tablet) 0.05 mg PO Q4H PRN; Protocol PRN Reason: anxiety Last Admin: 12/16/22 17:33 Dose: 0.05 mg Fluoxetine HCl (Fluoxetine Hcl 20 Mg Capsule) 40 mg PO DAILY SWATHI Last Admin: 12/20/22 07:58 Dose: 40 mg Hydroxyzine HCl (Hydroxyzine Hcl 25 Mg Tablet) 25 mg PO Q6H PRN PRN Reason: anxiety/restlessness Last Admin: 12/20/22 07:58 Dose: 25 mg [place] Carbonate ([place] Carbonate Er 300 Mg Tablet.Er) 300 mg PO BEDTIME SWATHI Last Admin: 12/19/22 22:23 Dose: 300 mg Magnesium Hydroxide (Milk Of Magnesia 30 Ml Oral.Susp) 30 ml PO DAILY PRN PRN Reason: Constipation Trazodone HCl (Trazodone Hcl 50 Mg Tablet) 50 mg PO BEDTIME MRX1 PRN PRN Reason: Insomnia Last Admin: 12/19/22 22:23 Dose: 50 mg Allergies Allergies Allergy/AdvReac Type Severity Reaction Status Date / Time No Known Allergies Allergy Verified 04/29/22 08:49 Assessment & Plan Assessment & Plan (1) MDD (major depressive disorder), recurrent episode, severe: Status: Acute Code(s): F33.2 - Major depressive disorder, recurrent severe without psychotic features (2) Anxiety: Status: Acute Code(s): F41.9 - Anxiety disorder, unspecified (3) Hallucinogenic mushrooms use disorder, severe: Status: Acute Code(s): F16.20 - Hallucinogen dependence, uncomplicated (4) Osteoporosis: Status: Acute Code(s): M81.0 - Age-related osteoporosis without current pathological fracture (5) Left displaced femoral neck fracture: Status: Acute Code(s): S72.002A - Fracture of unspecified part of neck of left femur, initial encounter for closed fracture (6) Closed fracture of left hip: Qualifiers: Encounter type: initial encounter Qualified Code(s): S72.002A - Fracture of unspecified part of neck of left femur, initial encounter for closed fracture Status: Acute Code(s): S72.002A - Fracture of unspecified part of neck of left femur, initial encounter for closed fracture Plan Patient is a 27-year-old male with history of chronic depression, anxiety, suicidal ideation,early onset Osteoporosis and psychedelics drug abuse who presents for suicide attempt in the face of depression, relational strife and intoxication on Psylisibin. -patient seems mostly to be struggling with chronic depression and anxiety and SI, which is also chronic exacerbated by drug use; patient made a comment about suicide due to worries about nuclear war however this seems most likely in the context of intoxication; will continue to explore history of anxiety, paranoid thinking PARAS -for now will continue on Prozac however will likely increase dose as patient is amenable to treatment; agrees to outpt therapy -will admit for safety medication management Hospital Course: 12/15 discussed hx of depression and anxiety further which has been present since grade school; most of life dysthymic with episodic bouts of severe depression; again, no hx of manic episodes. Chronic SI which is daily since adolescence; he says he's used to it though sometimes it gets overwhelming and he makes plans. Chronic self-deprecating thoughts; worries about future of world, climate change...worries about medical issues constant drag on mood Currently Pt remains depressed and feeling suicidal; he is battling despair and thoughts of given up, and even feels regrets recent attempt did not work; conversely he also says he's safe on the unit and wants treatment; he shares about postiive hx of therapy where he experienced hope and is trying to focus on that as possible now; also shares how that he knows how deeply his suicide would hurt his and family whom he loves and says this is a protective factor. Pt shares how he's been ambivalent about western medications for years however is now open to whatever would help w/ depression. says Prozac was initially helpful...Discussed TMS as well.? 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 will start [place] for depression given severity, chronic SI and biological loading for bipolar (though no hx of myriam, bipolar depression possibility) 12/17/22 No current suicidal behavior accepting prozac and lithium on 08.22 would benefit from getting info on potential tx for osteoporosis 12/18: Continue current tx plan. 12/19: Consider titration of Li as tolerated. Continue current treatment plan. 12/20 patient reports mood is significantly improved; all SI resolved. Patient is future oriented and feels that he is definitely on the road to recovery and will be able to climb out of this depressive episode. Denies medication side effects and wants to continue with lithium. Family supportive Plan: CV Q 5s, locked bathrooms; will likely advance to Q 15 is unlocked bathrooms Continue Prozac 40 mg daily; may titrate Continue [place] ER 300mg qhs: (pt has decades of chronic SI leading to unsafe behaviors; although no manic episodes, pt is biologically loaded for bipolar making lithium an option). -will get lithium level and associated labs Lowered to clonidine 0.05mg since higher dose causes hypotension (prn for anxiety (hydroxyzine not helpful)) Lead Welder reviewed [facility] ED note: ED at [facility] ED provider evaluated patient and determined patient did not need imaging as ?he did not have significant force on shoelaces used over door knob?? Acetaminophen level initially elevated but trending back towards normal; LFTs WNL Patient educated on: diagnosis, medication risk/benefits and therapeutic strategies Informed Consent: understands Reason for continued inpatient stay Substantial Risk for: rapid decompensation Time Spent With Patient Time: Total time managing care of this patient today ____ minutes.
[2022-12-20 18:00] VITALS: BP 114/57; PULSE 75; TEMP 36.7; O2SAT 97
[2022-12-20] MEDS: traZODone HCL 100 MG TABLET PO (21:39)
[2022-12-20] MEDS: Lithium Carbonate ER 300 MG TABLET.ER PO (21:39)
[2022-12-21 06:00] VITALS: BP 117/68; PULSE 65; RESP 18
[2022-12-21 07:49] LABS: Lithium 0.38 mmol/L (0.60-1.20)
[2022-12-21 08:00] LABS: Anion Gap 10 (12-20); Blood Urea Nitrogen 22 mg/dL (9-16); Carbon Dioxide 31 mmol/L (22-29); Chloride 105 mmol/L (96-108); Creatinine Clr Calc Pharmacy 90.9; Estimated Glomerular Filt Rate > 60; Potassium 4.4 mmol/L (3.3-5.1); Sodium 142 mmol/L (135-145)
[2022-12-21 08:19] LABS: TSH reflex Free T4 1.61 uIU/mL (0.32-4.0)
[2022-12-21] MEDS: FLUoxetine HCl 20 MG CAPSULE 40 MG PO (08:29)
--- NOTE | 2022-12-21 09:37 | HO.PSYCHPN ---
Subjective Subjective Date of Service: 12/21/22 Reason For Visit: Persistent depressive disorder Interim History: Met with patient; discussed with team Patient remains in much improved mood, future oriented and feeling that depression is abating. He still has intermittent passive SI but this is been chronic since adolescents and patient denies any desire for self-harm. Patient said he slept well last night. He did have very vivid dream and business writer discussed this could be a side effect of trazodone. Patient would like to remain on current medication regimen for now. Patient remains much more engaged with others, more social in the milieu, attending groups. Mental Status Exam Mental Status Exam Narrative: Pt is alert and oriented; behavior is cooperative, calm; patient is not in distress; dressed in casual attire, wool cap, shaved head, adequate hygiene; mood is described as good and affect congruent, noticeably brighter; eye contact appropriate; Speech is regular volume, rate and prosody; no psychomotor retardation present; thought process is goal directed; Thought content is on treatment, battling depression; otherwise pertinent to relevant topics and without any delusional content, paranoid ideations or grandiosity; intermittent, brief passive SI but able to be ignored; no HI. There is no evidence of perceptual disturbance and denies AVH. Patients insight and judgment significantly improved and adequate. Diagnostics Vital Signs (24Hr): Vital Signs - 24 hr 12/20/22 18:00 12/21/22 06:00 Temperature 98.0 F Pulse Rate 75 65 Respiratory Rate 18 Blood Pressure 114/57 L 117/68 Pulse Oximetry 97 Oxygen Delivery Method Room Air BMI result Body Mass Index 18.1 Labs 12/18/22 07:40 12/21/22 07:21 Labs: Laboratory Results - last 48 hr 12/21/22 12/21/22 07:21 07:21 Sodium 142 Potassium 4.4 Chloride 105 Carbon Dioxide 31 H Anion Gap 10 L BUN 22 H Creatinine 0.98 Estim Creat Clear Calc 90.9 Estimated GFR > 60 TSH 1.61 [place] 0.38 L Medications Medications Current Medications Acetaminophen (Acetaminophen 325 Mg Tablet) 650 mg PO Q6H PRN PRN Reason: Headache/Pain Mild Scale (1-3) Al Hydroxide/Mg Hydroxide (Magnesium Hydrox/Alum Hydrox 30 Ml Oral.Susp) 30 ml PO Q6H PRN PRN Reason: Heartburn/Nausea Clonidine HCl (Clonidine Hcl 0.1 Mg Tablet) 0.05 mg PO Q4H PRN; Protocol PRN Reason: anxiety Last Admin: 12/16/22 17:33 Dose: 0.05 mg Fluoxetine HCl (Fluoxetine Hcl 20 Mg Capsule) 40 mg PO DAILY SWATHI Last Admin: 12/21/22 08:29 Dose: 40 mg Hydroxyzine HCl (Hydroxyzine Hcl 25 Mg Tablet) 25 mg PO Q6H PRN PRN Reason: anxiety/restlessness Last Admin: 12/20/22 17:09 Dose: 25 mg [place] Carbonate ([place] Carbonate Er 300 Mg Tablet.Er) 300 mg PO BEDTIME SWATHI Last Admin: 12/20/22 21:39 Dose: 300 mg Magnesium Hydroxide (Milk Of Magnesia 30 Ml Oral.Susp) 30 ml PO DAILY PRN PRN Reason: Constipation Trazodone HCl (Trazodone Hcl 100 Mg Tablet) 100 mg PO BEDTIME PRN PRN Reason: Insomnia Last Admin: 12/20/22 21:39 Dose: 100 mg Allergies Allergies Allergy/AdvReac Type Severity Reaction Status Date / Time No Known Allergies Allergy Verified 04/29/22 08:49 Assessment & Plan Assessment & Plan (1) MDD (major depressive disorder), recurrent episode, severe: Status: Acute Code(s): F33.2 - Major depressive disorder, recurrent severe without psychotic features (2) Anxiety: Status: Acute Code(s): F41.9 - Anxiety disorder, unspecified (3) Hallucinogenic mushrooms use disorder, severe: Status: Acute Code(s): F16.20 - Hallucinogen dependence, uncomplicated (4) Osteoporosis: Status: Acute Code(s): M81.0 - Age-related osteoporosis without current pathological fracture (5) Left displaced femoral neck fracture: Status: Acute Code(s): S72.002A - Fracture of unspecified part of neck of left femur, initial encounter for closed fracture (6) Closed fracture of left hip: Qualifiers: Encounter type: initial encounter Qualified Code(s): S72.002A - Fracture of unspecified part of neck of left femur, initial encounter for closed fracture Status: Acute Code(s): S72.002A - Fracture of unspecified part of neck of left femur, initial encounter for closed fracture Plan Patient is a 27-year-old male with history of chronic depression, anxiety, suicidal ideation,early onset Osteoporosis and psychedelics drug abuse who presents for suicide attempt in the face of depression, relational strife and intoxication on Psylisibin. -patient seems mostly to be struggling with chronic depression and anxiety and SI, which is also chronic exacerbated by drug use; patient made a comment about suicide due to worries about nuclear war however this seems most likely in the context of intoxication; will continue to explore history of anxiety, paranoid thinking PARAS -for now will continue on Prozac however will likely increase dose as patient is amenable to treatment; agrees to outpt therapy -will admit for safety medication management Hospital Course: 12/15 discussed hx of depression and anxiety further which has been present since grade school; most of life dysthymic with episodic bouts of severe depression; again, no hx of manic episodes. Chronic SI which is daily since adolescence; he says he's used to it though sometimes it gets overwhelming and he makes plans. Chronic self-deprecating thoughts; worries about future of world, climate change...worries about medical issues constant drag on mood Currently Pt remains depressed and feeling suicidal; he is battling despair and thoughts of given up, and even feels regrets recent attempt did not work; conversely he also says he's safe on the unit and wants treatment; he shares about postiive hx of therapy where he experienced hope and is trying to focus on that as possible now; also shares how that he knows how deeply his suicide would hurt his and family whom he loves and says this is a protective factor. Pt shares how he's been ambivalent about western medications for years however is now open to whatever would help w/ depression. says Prozac was initially helpful...Discussed TMS as well.? 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 will start [place] for depression given severity, chronic SI and biological loading for bipolar (though no hx of myriam, bipolar depression possibility) 12/17/22 No current suicidal behavior accepting prozac and lithium on 1.1 would benefit from getting info on potential tx for osteoporosis 12/18: Continue current tx plan. 12/19: Consider titration of Li as tolerated. Continue current treatment plan. 12/20 patient reports mood is significantly improved; all SI resolved. Patient is future oriented and feels that he is definitely on the road to recovery and will be able to climb out of this depressive episode. Denies medication side effects and wants to continue with lithium. Family supportive 12/21 patient continues to stabilize; in good behavioral and impulse control; intermittent passive SI but able to be ignored; [place] level subtherapeutic but pt has no hx of manic episodes and mood is improving; will leave dose as is Plan: CV Q 5s, locked bathrooms; will likely advance to Q 15 is unlocked bathrooms Continue trazodone 100mg qhs Continue Prozac 40 mg daily; may titrate Continue [place] ER 300mg qhs: (pt has decades of chronic SI leading to unsafe behaviors; although no manic episodes, pt is biologically loaded for bipolar making lithium an option). -[place] level subtherapeutic but pt has no hx of manic episodes and mood is improving; will leave dose as is Lowered to clonidine 0.05mg since higher dose causes hypotension (prn for anxiety (hydroxyzine not helpful)) Center Specialists reviewed [facility] ED note: ED at [facility] ED provider evaluated patient and determined patient did not need imaging as ?he did not have significant force on shoelaces used over door knob?? Acetaminophen level initially elevated but trending back towards normal; LFTs WNL Patient educated on: diagnosis and medication risk/benefits Informed Consent: understands Reason for continued inpatient stay Substantial Risk for: stable for discharge Time Spent With Patient Time: Total time managing care of this patient today ____ minutes.
[2022-12-21] MEDS: hydrOXYzine HCL 25 MG TABLET PO ×3 (10:11→21:11)
[2022-12-21 18:00] VITALS: BP 114/57; PULSE 83; RESP 18; TEMP 37.1; O2SAT 99
[2022-12-21] MEDS: Lithium Carbonate ER 300 MG TABLET.ER PO (21:11)
[2022-12-21] MEDS: traZODone HCL 100 MG TABLET PO (21:12)
[2022-12-22 07:55] VITALS: BP 105/52; PULSE 69; RESP 18; TEMP 36.6; O2SAT 97
[2022-12-22] MEDS: FLUoxetine HCl 20 MG CAPSULE 40 MG PO (07:56)
--- NOTE | 2022-12-22 09:27 | P.PNPSI_ITS ---
Subjective Subjective Date of Service: 12/22/22 Reason For Visit: Persistent depressive disorder Interim History: Met with patient; discussed with team Patient reports that he remains doing much better. He still has depression but is able to use hopeful thoughts to know that he will continue to get better; intermittently passive SI thoughts flowed through his mind but nothing active. Patient remains hopeful and future oriented. Discussed cannabis and psychadelic drugs, Psylisibin, and patient agrees that these are likely to interfere with his mood stability and has decided to no longer use them; he has discussed this with friends and family who also agree and who also no longer use. Matte Cutter reviewed lab work; also discussed risks/side effects of lithium which patient understood, asked questions about and agreed to continue taking. Shared he continued to have vivid dreams. Not sure if it is trazodone over the fact that he has been off cannabis for over a week; patient said he enjoys getting the sleep and wants to leave trazodone dose as it is says the dreams were not bothersome. Mental Status Exam Mental Status Exam Narrative: Pt is alert and oriented; behavior is cooperative, calm; patient is not in distress; dressed in casual attire, wool cap, shaved head, adequate hygiene; mood is described as better and affect congruent, noticeably brighter; eye contact appropriate; Speech is regular volume, rate and prosody; no psychomotor retardation present; thought process is goal directed; Thought content is on treatment, battling depression; otherwise pertinent to relevant topics and without any delusional content, paranoid ideations or grandiosity; intermittent, brief passive SI but able to be ignored; no HI. There is no evidence of perceptual disturbance and denies AVH. Patients insight and judgment significantly improved and adequate. Diagnostics Vital Signs (24Hr): Vital Signs - 24 hr 12/21/22 18:00 12/22/22 07:55 Temperature 98.8 F 97.9 F Pulse Rate 83 69 Respiratory Rate 18 18 Blood Pressure 114/57 L 105/52 L Pulse Oximetry 99 97 Oxygen Delivery Method Room Air Room Air BMI result Body Mass Index 18.1 Labs 12/18/22 07:40 12/21/22 07:21 Labs: Laboratory Results - last 48 hr 12/21/22 12/21/22 07:21 07:21 Sodium 142 Potassium 4.4 Chloride 105 Carbon Dioxide 31 H Anion Gap 10 L BUN 22 H Creatinine 0.98 Estim Creat Clear Calc 90.9 Estimated GFR > 60 TSH 1.61 [place] 0.38 L Medications Medications Current Medications Acetaminophen (Acetaminophen 325 Mg Tablet) 650 mg PO Q6H PRN PRN Reason: Headache/Pain Mild Scale (1-3) Al Hydroxide/Mg Hydroxide (Magnesium Hydrox/Alum Hydrox 30 Ml Oral.Susp) 30 ml PO Q6H PRN PRN Reason: Heartburn/Nausea Clonidine HCl (Clonidine Hcl 0.1 Mg Tablet) 0.05 mg PO Q4H PRN; Protocol PRN Reason: anxiety Last Admin: 12/16/22 17:33 Dose: 0.05 mg Fluoxetine HCl (Fluoxetine Hcl 20 Mg Capsule) 40 mg PO DAILY SWATHI Last Admin: 12/22/22 07:56 Dose: 40 mg Hydroxyzine HCl (Hydroxyzine Hcl 25 Mg Tablet) 25 mg PO Q6H PRN PRN Reason: anxiety/restlessness Last Admin: 12/21/22 21:11 Dose: 25 mg [place] Carbonate ([place] Carbonate Er 300 Mg Tablet.Er) 300 mg PO BEDTIME SWATHI Last Admin: 12/21/22 21:11 Dose: 300 mg Magnesium Hydroxide (Milk Of Magnesia 30 Ml Oral.Susp) 30 ml PO DAILY PRN PRN Reason: Constipation Trazodone HCl (Trazodone Hcl 100 Mg Tablet) 100 mg PO BEDTIME PRN PRN Reason: Insomnia Last Admin: 12/21/22 21:12 Dose: 100 mg Allergies Allergies Allergy/AdvReac Type Severity Reaction Status Date / Time No Known Allergies Allergy Verified 04/29/22 08:49 Assessment & Plan Assessment & Plan (1) MDD (major depressive disorder), recurrent episode, severe: Status: Acute Code(s): F33.2 - Major depressive disorder, recurrent severe without psychotic features (2) Anxiety: Status: Acute Code(s): F41.9 - Anxiety disorder, unspecified (3) Hallucinogenic mushrooms use disorder, severe: Status: Acute Code(s): F16.20 - Hallucinogen dependence, uncomplicated (4) Osteoporosis: Status: Acute Code(s): M81.0 - Age-related osteoporosis without current pathological fracture (5) Left displaced femoral neck fracture: Status: Acute Code(s): S72.002A - Fracture of unspecified part of neck of left femur, initial encounter for closed fracture (6) Closed fracture of left hip: Qualifiers: Encounter type: initial encounter Qualified Code(s): S72.002A - Fracture of unspecified part of neck of left femur, initial encounter for closed fracture Status: Acute Code(s): S72.002A - Fracture of unspecified part of neck of left femur, initial encounter for closed fracture Plan Patient is a 27-year-old male with history of chronic depression, anxiety, suici bianca ideation,early onset Osteoporosis and psychedelics drug abuse who presents for suicide attempt in the face of depression, relational strife and intoxication on Psylisibin. -patient seems mostly to be struggling with chronic depression and anxiety and SI, which is also chronic exacerbated by drug use; patient made a comment about suicide due to worries about nuclear war however this seems most likely in the context of intoxication; will continue to explore history of anxiety, paranoid thinking PARAS -for now will continue on Prozac however will likely increase dose as patient is amenable to treatment; agrees to outpt therapy -will admit for safety medication management Hospital Course: 12/15 discussed hx of depression and anxiety further which has been present since grade school; most of life dysthymic with episodic bouts of severe depression; again, no hx of manic episodes. Chronic SI which is daily since adolescence; he says he's used to it though sometimes it gets overwhelming and he makes plans. Chronic self-deprecating thoughts; worries about future of world, climate change...worries about medical issues constant drag on mood Currently Pt remains depressed and feeling suicidal; he is battling despair and thoughts of given up, and even feels regrets recent attempt did not work; conversely he also says he's safe on the unit and wants treatment; he shares about postiive hx of therapy where he experienced hope and is trying to focus on that as possible now; also shares how that he knows how deeply his suicide would hurt his and family whom he loves and says this is a protective factor. Pt shares how he's been ambivalent about western medications for years however is now open to whatever would help w/ depression. says Prozac was initially helpful...Discussed TMS as well.? 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 will start [place] for depression given severity, chronic SI and biological loading for bipolar (though no hx of myriam, bipolar depression possibility) 12/17/22 No current suicidal behavior accepting prozac and lithium on .1 would benefit from getting info on potential tx for osteoporosis 12/18: Continue current tx plan. 12/19: Consider titration of Li as tolerated. Continue current treatment plan. 12/20 patient reports mood is significantly improved; all SI resolved. Patient is future oriented and feels that he is definitely on the road to recovery and will be able to climb out of this depressive episode. Denies medication side effects and wants to continue with lithium. Family supportive 12/21 patient continues to stabilize; in good behavioral and impulse control; intermittent passive SI but able to be ignored; [place] level subtherapeutic but pt has no hx of manic episodes and mood is improving; will leave at current dose 12/22 patient continues to stabilize well; tolerating medication; reviewed risks/side effects of lithium; patient thinks he will be ready to discharge soon. Remains in good behavioral and impulse control, attending groups, appropriate with peers and staff. Discussed with staff who agrees patient is a ppropriate to advance to Q 15 Plan: CV Q 15 and unlocked bathrooms Continue trazodone 100mg qhs Continue Prozac 40 mg daily; may titrate Continue [place] ER 300mg qhs: (pt has decades of chronic SI leading to unsafe behaviors; although no manic episodes, pt is biologically loaded for bipolar making lithium an option). -[place] level subtherapeutic but pt has no hx of manic episodes and mood is improving; will leave dose as is Lowered to clonidine 0.05mg since higher dose causes hypotension (prn for anxiety (hydroxyzine not helpful)) Regarding [place], Risks, side-effects and benefits reviewed with pt, including damage to kidneys and thyroid; pt was educated to stay hydrated, to watch for symptoms of lithium toxicity (including but not limited to nausea, tremor, confusion) and the need to stay away from OTC NSAIDs (specifics reviewed) aside from Tylenol. Matte Cutter reviewed [facility] note: ED at [facility] ED provider evaluated patient and determined patient did not need imaging as ?he did not have significant force on shoelaces used over door knob?? Acetaminophen level initially elevated but trending back towards normal; LFTs WNL Patient educated on: diagnosis, medication risk/benefits, substance abuse and therapeutic strategies Informed Consent: understands Reason for continued inpatient stay Substantial Risk for: stable for discharge Time Spent With Patient Time: Total time managing care of this patient today ____ minutes.
[2022-12-22] MEDS: hydrOXYzine HCL 25 MG TABLET PO ×2 (09:40→20:44)
[2022-12-22 18:00] VITALS: BP 118/69; PULSE 75; RESP 18; TEMP 37.2; O2SAT 18
[2022-12-22] MEDS: traZODone HCL 100 MG TABLET PO (20:44)
[2022-12-22] MEDS: Lithium Carbonate ER 300 MG TABLET.ER PO (20:44)
[2022-12-23 08:10] VITALS: BP 100/52; PULSE 67; RESP 18; TEMP 36.7; O2SAT 98
[2022-12-23] MEDS: FLUoxetine HCl 20 MG CAPSULE 40 MG PO (08:12)
[2022-12-23] MEDS: hydrOXYzine HCL 25 MG TABLET PO ×2 (08:12→20:30)
[2022-12-23 08:42] VITALS: BMI 17.6
--- NOTE | 2022-12-23 10:17 | HO.PSYCHPN ---
Subjective Subjective Date of Service: 12/23/22 Reason For Visit: Persistent depressive disorder Interim History: Met with patient; discussed with team Patient had another very vivid dream last night that was bothersome. He still wants trazodone but asks for to be lowered to 75 mg. Discussed how patient has intermittent passive SI. He says that what happens is he will get anxious, get a little depressed about being anxious and have a thought that perhaps life not worth living. He remains passive, brief and quickly resolves. He reiterates that this type of passive SI is chronic and been present for most of his life and he is able to distinguish between this type of passive SI and when it becomes intense or problematic. He is clear that none of this is active and that he feels safe and doing better that is done in a long time; he remains with improved mood, optimistic and future oriented. Rug Measurer provided patient a handout from [facility] regarding lithium which patient said he would read over and ask questions as they came up. Also discussed Lamictal which some of his family takes and patient appreciated the information. Otherwise he is feeling ready for discharge tomorrow and grateful for the help received. Mental Status Exam Mental Status Exam Narrative: Pt is alert and oriented; behavior is cooperative, calm; patient is not in distress; dressed in casual attire, wool cap, shaved head, adequate hygiene; mood is described as good and affect congruent, noticeably brighter; eye contact appropriate; Speech is regular volume, rate and prosody; no psychomotor retardation present; thought process is goal directed; Thought content is on treatment, battling depression; otherwise pertinent to relevant topics and without any delusional content, paranoid ideations or grandiosity; intermittent, brief passive SI which is chronic and able to be ignored; no HI. There is no evidence of perceptual disturbance and denies AVH. Patients insight and judgment fair and adequate Diagnostics Vital Signs (24Hr): Vital Signs - 24 hr 12/22/22 18:00 12/23/22 08:10 Temperature 99 F 98.1 F Pulse Rate 75 67 Respiratory Rate 18 18 Blood Pressure 118/69 100/52 L Pulse Oximetry 18 L 98 Oxygen Delivery Method Room Air Room Air BMI result Body Mass Index 17.6 Labs 12/18/22 07:40 12/21/22 07:21 Medications Medications Current Medications Acetaminophen (Acetaminophen 325 Mg Tablet) 650 mg PO Q6H PRN PRN Reason: Headache/Pain Mild Scale (1-3) Al Hydroxide/Mg Hydroxide (Magnesium Hydrox/Alum Hydrox 30 Ml Oral.Susp) 30 ml PO Q6H PRN PRN Reason: Heartburn/Nausea Clonidine HCl (Clonidine Hcl 0.1 Mg Tablet) 0.05 mg PO Q4H PRN; Protocol PRN Reason: anxiety Last Admin: 12/16/22 17:33 Dose: 0.05 mg Fluoxetine HCl (Fluoxetine Hcl 20 Mg Capsule) 40 mg PO DAILY SWATHI Last Admin: 12/23/22 08:12 Dose: 40 mg Hydroxyzine HCl (Hydroxyzine Hcl 25 Mg Tablet) 25 mg PO Q6H PRN PRN Reason: anxiety/restlessness Last Admin: 12/23/22 08:12 Dose: 25 mg [place] Carbonate ([place] Carbonate Er 300 Mg Tablet.Er) 300 mg PO BEDTIME SWATHI Last Admin: 12/22/22 20:44 Dose: 300 mg Magnesium Hydroxide (Milk Of Magnesia 30 Ml Oral.Susp) 30 ml PO DAILY PRN PRN Reason: Constipation Trazodone HCl (Trazodone Hcl 100 Mg Tablet) 100 mg PO BEDTIME PRN PRN Reason: Insomnia Last Admin: 12/22/22 20:44 Dose: 100 mg Allergies Allergies Allergy/AdvReac Type Severity Reaction Status Date / Time No Known Allergies Allergy Verified 04/29/22 08:49 Assessment & Plan Assessment & Plan (1) MDD (major depressive disorder), recurrent episode, severe: Status: Acute Code(s): F33.2 - Major depressive disorder, recurrent severe without psychotic features (2) Anxiety: Status: Acute Code(s): F41.9 - Anxiety disorder, unspecified (3) Hallucinogenic mushrooms use disorder, severe: Status: Acute Code(s): F16.20 - Hallucinogen dependence, uncomplicated (4) Osteoporosis: Status: Acute Code(s): M81.0 - Age-related osteoporosis without current pathological fracture (5) Left displaced femoral neck fracture: Status: Acute Code(s): S72.002A - Fracture of unspecified part of neck of left femur, initial encounter for closed fracture (6) Closed fracture of left hip: Qualifiers: Encounter type: initial encounter Qualified Code(s): S72.002A - Fracture of unspecified part of neck of left femur, initial encounter for closed fracture Status: Acute Code(s): S72.002A - Fracture of unspecified part of neck of left femur, initial encounter for closed fracture Plan Patient is a 27-year-old male with history of chronic depression, anxiety, suicidal ideation,early onset Osteoporosis and psychedelics drug abuse who presents for suicide attempt in the face of depression, relational strife and intoxication on Psylisibin. -patient seems mostly to be struggling with chronic depression and anxiety and SI, which is also chronic exacerbated by drug use; patient made a comment about suicide due to worries about nuclear war however this seems most likely in the context of intoxication; will continue to explore history of anxiety, paranoid thinking PRAAS -for now will continue on Prozac however will likely increase dose as patient is amenable to treatment; agrees to outpt therapy -will admit for safety medication management Hospital Course: 12/15 discussed hx of depression and anxiety further which has been present since grade school; most of life dysthymic with episodic bouts of severe depression; again, no hx of manic episodes. Chronic SI which is daily since adolescence; he says he's used to it though sometimes it gets overwhelming and he makes plans. Chronic self-deprecating thoughts; worries about future of world, climate change...worries about medical issues constant drag on mood Currently Pt remains depressed and feeling suicidal; he is battling despair and thoughts of given up, and even feels regrets recent attempt did not work; conversely he also says he's safe on the unit and wants treatment; he shares about postiive hx of therapy where he experienced hope and is trying to focus on that as possible now; also shares how that he knows how deeply his suicide would hurt his and family whom he loves and says this is a protective factor. Pt shares how he's been ambivalent about western medications for years however is now open to whatever would help w/ depression. says Prozac was initially helpful...Discussed TMS as well.? Graduated H.S; some college; close to brothers, mother; though hx of strained relationships, now very close 12/16 early childhood, pt tied pants around neck trying to strangle self; says impulsive and not planned however reveals that since on the unit, he's intermittently thought of ways to self harm; 1:1 for now. will start [place] for depression given severity, chronic SI and biological loading for bipolar (though no hx of myriam, bipolar depression possibility) 12/17/22 No current suicidal behavior accepting prozac and lithium on .1 would benefit from getting info on potential tx for osteoporosis 12/18: Continue current tx plan. 12/19: Consider titration of Li as tolerated. Continue current treatment plan. 12/20 patient reports mood is significantly improved; all SI resolved. Patient is future oriented and feels that he is definitely on the road to recovery and will be able to climb out of this depressive episode. Denies medication side effects and wants to continue with lithium. Family supportive 12/21 patient continues to stabilize; in good behavioral and impulse control; intermittent passive SI but able to be ignored; [place] level subtherapeutic but pt has no hx of manic episodes and mood is improving; will leave at current dose 12/22 patient continues to stabilize well; tolerating medication; reviewed risks/side effects of lithium; patient thinks he will be ready to discharge soon. Remains in good behavioral and impulse control, attending groups, appropriate with peers and staff. Discussed with staff who agrees patient is appropriate to advance to Q 15 12/23 remained stable, in good mood, optimistic and feeling ready for discharge. Intermittent, brief passive SI remains however patient explains that this is chronic and easily ignored and resolved on its own; he will reach out for help if he feels unsafe. Patient grateful for help received on unit. While patient remains vulnerable to decompensation however he is doing much better and not in imminent risk for harm to self or others. Patient's request for discharge appropriate an honored. Plan: CV Q 15 and unlocked bathrooms Lower to trazodone 75mg qhs Continue Prozac 40 mg daily; may titrate Continue [place] ER 300mg qhs: (pt has decades of chronic SI leading to unsafe behaviors; although no manic episodes, pt is biologically loaded for bipolar making lithium an option). -[place] level subtherapeutic but pt has no hx of manic episodes and mood is improving; will leave dose as is Lowered to clonidine 0.05mg since higher dose causes hypotension (prn for anxiety (hydroxyzine not helpful)) Regarding [place], Risks, side-effects and benefits reviewed with pt, including damage to kidneys and thyroid; pt was educated to stay hydrated, to watch for symptoms of lithium toxicity (including but not limited to nausea, tremor, confusion) and the need to stay away from OTC NSAIDs (specifics reviewed) aside from Tylenol. Rug Measurer reviewed [facility] ED note: ED at [facility] ED provider evaluated patient and determined patient did not need imaging as ?he did not have significant force on shoelaces used over door knob?? Acetaminophen level initially elevated but trending back towards normal; LFTs WNL Patient educated on: diagnosis, medication risk/benefits and therapeutic strategies Informed Consent: understands Reason for continued inpatient stay Substantial Risk for: stable for discharge Time Spent With Patient Time: Total time managing care of this patient today ____ minutes.
[2022-12-23 18:00] VITALS: BP 128/68; PULSE 96; RESP 16; TEMP 36.6; O2SAT 99
[2022-12-23] MEDS: Lithium Carbonate ER 300 MG TABLET.ER PO (20:21)
[2022-12-23] MEDS: traZODone HCL 25 MG HALFTAB 75 MG PO (20:29)
[2022-12-24 08:27] VITALS: BP 116/76; PULSE 70; RESP 16; TEMP 36.3; O2SAT 99
[2022-12-24] MEDS: FLUoxetine HCl 20 MG CAPSULE 40 MG PO (08:35)
--- NOTE | 2022-12-24 09:08 | P.DS_ITS ---
DS: Providers Provider Date of Service: 12/24/22 Date of admission: 12/14/22 01:30 Date of discharge: 12/24/22 Primary care physician: Unknown Physician Attending physician on admission: Sunny Gama Consults: 12/14/22 01:43 Consult to Hospitalist Routine Comment: Consulting Provider: Hospitalist Reason For Exam: medical H&P Attending physician on discharge: Sunny Gama DS: Diagnosis Discharge Diagnosis (1) MDD (major depressive disorder), recurrent episode, severe: Status: Acute (2) Anxiety: Status: Acute (3) Hallucinogenic mushrooms use disorder, severe: Status: Acute (4) Osteoporosis: Status: Acute (5) Left displaced femoral neck fracture: Status: Acute (6) Closed fracture of left hip: Status: Acute DS: Medications Discharge Medications Home Medications: Previous Rx's Medication Instructions Recorded acetaminophen 325 mg tablet 650 mg PO QID PRN Pain, Mild (Pain 09/18/20 Scale 1-3) 30 days #240 tabs fluoxetine 20 mg capsule 40 mg PO DAILY 30 days #60 caps 12/24/22 hydroxyzine HCl 25 mg tablet 25 mg PO Q6H PRN Anxiety/insomnia 12/24/22 30 days #90 tabs lithium carbonate 300 mg 300 mg PO BEDTIME 30 days #30 tabs 12/24/22 tablet,extended release trazodone 50 mg tablet 75 mg PO BEDTIME PRN insomnia 30 12/24/22 days #45 tabs Mental Status Exam Mental Status Exam Narrative: Pt is alert and oriented; behavior is cooperative, calm; patient is not in distress; dressed in casual attire, wool cap, shaved head, adequate hygiene; mood is described as good and affect congruent, noticeably brighter; eye contact appropriate; Speech is regular volume, rate and prosody; no psychomotor retardation present; thought process is goal directed; Thought content is on treatment, battling depression; otherwise pertinent to relevant topics and without any delusional content, paranoid ideations or grandiosity; intermittent, brief passive SI which is chronic and able to be ignored; no HI. There is no evidence of perceptual disturbance and denies AVH. Patients insight and judgment fair and adequate Data Data Completed and Pending Completed studies during hospitalization [Text1]: 12/17/22 12/18/22 12/18/22 08:14 07:40 07:40 WBC 6.2 RBC 4.17 L Hgb 13.4 L Hct 40.0 L MCV 95.9 MCH 32.1 MCHC 33.5 RDW 13.0 Plt Count 150 L MPV 9.9 Immature Gran % (Auto) 0.3 Neut % (Auto) 50.4 Lymph % (Auto) 34.0 [place] % (Auto) 11.8 H Eos % (Auto) 2.7 Baso % (Auto) 0.8 Lymph # (Auto) 2.1 [place] # (Auto) 0.7 Eos # (Auto) 0.2 Baso # (Auto) 0.1 Abs Immat Gran (auto) 0.02 Absolute Neuts (auto) 3.1 Absolute Nucleated RBC 0.000 Nucleated RBC % (auto) 0.0 Sodium Potassium Chloride Carbon Dioxide Anion Gap BUN Creatinine Estim Creat Clear Calc Estimated GFR 25-OH Vitamin D Total 23.5 TSH Total Testosterone Fr Testosterone Dialys [place] 0.22 L 12/18/22 12/21/22 12/21/22 07:40 07:21 07:21 WBC RBC Hgb Hct MCV MCH MCHC RDW Plt Count MPV Immature Gran % (Auto) Neut % (Auto) Lymph % (Auto) [place] % (Auto) Eos % (Auto) Baso % (Auto) Lymph # (Auto) [place] # (Auto) Eos # (Auto) Baso # (Auto) Abs Immat Gran (auto) Absolute Neuts (auto) Absolute Nucleated RBC Nucleated RBC % (auto) Sodium 142 Potassium 4.4 Chloride 105 Carbon Dioxide 31 H Anion Gap 10 L BUN 22 H Creatinine 0.98 Estim Creat Clear Calc 90.9 Estimated GFR > 60 25-OH Vitamin D Total TSH 1.61 Total Testosterone Pending Fr Testosterone Dialys Pending [place] 0.38 L DS: Summary Hospital Course Hospital Course: Patient is a 27-year-old male with history of chronic depression, anxiety, suicidal ideation,early onset Osteoporosis? and psychedelics drug abuse who presents for suicide attempt in the face of depression, relational strife and intoxication on Psylisibin.? On admission, patient was depressed with intermittent suicidality which patient said that the time was passive; though family history of bipolar disorder, patient had no manic episodes and at this met criteria for MDD. Patient's Prozac was increased. Patient however remained depressed and feeling hopeless tide a bed sheet around his neck in in an impulsive moment; patient was placed on one-to-one with locked bathroom. He was started on lithium which was chosen to augment Prozac but also due to chronic SI and having a significant family history of bipolar disorder, making it possible that patient's depression could in fact be a bipolar depression. On this medication regimen, and with milieu therapy and strong support from his family, patient's mood significantly improved. His depression and anxiety remained but at a much lower and tolerable level. Patient was with noticeably brighter affect, social with peers, attending groups and expressing how refreshing at felt to be hopeful. He was able to come off one-to-one and remained in good behavioral and impulse control throughout the remainder of his stay; patient was appropriate with staff and got along well with peers. Though intermittent SI remained, patient explained it was his chronic type of SI which is passive, brief and quickly resolves. Patient shared that he has come to the conclusion that cannabis, drug use is detrimental to his mental health and is not pursuing sobriety. Patient tolerated medication well. He was started on trazodone for help with insomnia which may have caused vivid dreams but was helpful for sleep and patient wanted to continue. Patient's lab work within normal limits and reviewed. Patient remains stable, in overall good mood, future oriented and optimistic. Patient felt ready for discharge and eager to continue treatment in the community. He lives with his supportive and enjoy significant support from his extended family. Patient is not in imminent risk for harm to self or others and appropriate to return to the community for treatment. His request for discharge honored. Time spent discussing smoking cessation with patient: 3 to 10 minutes Status at Discharge Functional status at discharge: independent ambulation Overall status at discharge: patient is back to baseline Time Spent with Patient Time attestation: Total time managing care of this patient today ____ minutes. Time spent: Greater than 30 minutes Discharge Plan Discharge Anticipated Discharge Date/Time: 12/24/22 11:30 Patient Disposition: Home, Self-Care Discharge Diagnosis: MDD, recurrent, severe w/out psychotic features in partial remission Referrals: Viky Dumont: [facility] ([facility]) [Other] - 12/28/22 11:00 am (Initial Diagnostic Evaluation with Therapist in clinic at [facility].) Joleen Castillo: [facility] ([facility]) [Other] - 01/13/23 9:00 am (Initial diagnostic evaluation with psychiatric medication provider. Appointment is by tele-health.) Arnold Thornton MD [Physician] - 1 Week (is aware will call pt. at home with follow up appointment) Discharge Medications: New fluoxetine 20 mg Capsule 40 mg PO DAILY 30 Days Qty: 60 1RF hydroxyzine HCl 25 mg Tablet 25 mg PO Q6H PRN (Reason: Anxiety/insomnia) 30 Days Qty: 90 1RF lithium carbonate 300 mg Tablet Extended Release 300 mg PO BEDTIME 30 Days Qty: 30 1RF trazodone 50 mg tablet 75 mg PO BEDTIME PRN (Reason: insomnia) 30 Days Qty: 45 1RF Continued acetaminophen 325 mg Tablet 650 mg PO QID PRN (Reason: Pain, Mild (Pain Scale 1-3)) 30 Days Qty: 240 0RF Discontinued fluoxetine 10 mg capsule 20 mg PO QAM Discharge Orders: Discharge Order (Routine); Ordered 12/24/22 Ordered By: Sunny Gama Diet: Regular diet Activity on Discharge: As tolerated Stand Alone Forms: Patient Portal Discharge page Care Plan Goals: Maintain mood and safe behaviors Take medications as prescribed Continue to pursue sobriety Practice coping skills Continue with outpatient providers and reach out to them as needed Health Concerns: Mood stability and behaviors Sobriety Osteoporosis Plan of Treatment: Follow up with your PCP, psychiatric provider and other outpatient providers regarding above concerns Take medications as prescribed Assessment: Risk assessment at time of discharge:? Patient was interviewed prior to dis charge and found to be fully oriented and without any SI or HI. Patient has insight and demonstrates good judgment in terms of wanting to pursue treatment. Patient is not in imminent risk of harm to self or others and has a safety plan that includes presenting to the closest ER or calling 911 if feeling unsafe.? Patient has been observed closely by nursing and unit staff throughout admission; patient has not engaged in any behaviors that suggest dangerousness to self or others and has demonstrated appropriate behaviors and impulse control
[2022-12-24] MEDS: hydrOXYzine HCL 25 MG TABLET PO (10:29)
[2023-01-05 12:38] LABS: Testosterone, Total 651 ng/dL (250-1100)
== END 2022-12-24 11:01 | disposition home or self-care (01) | DRG 751 ==
PROVIDERS: Psychiatry & Neurology Psychiatry; Social Worker; Admitting Provider Psychiatry & Neurology Psychiatry; Visit Provider Psychiatry & Neurology Psychiatry
DX: F33.2 Major depressive disorder, recurrent severe without psychotic features (principal); E44.0 Moderate protein-calorie malnutrition; R45.851 Suicidal ideations; M81.8 Other osteoporosis without current pathological fracture; F41.9 Anxiety disorder, unspecified; F16.20 Hallucinogen dependence, uncomplicated; Z68.1 Body mass index [BMI] 19.9 or less, adult; Z79.899 Other long term (current) drug therapy
CPT/HCPCS: 36415; 80051; 80053; 80061; 80178; 82306; 82565; 82607; 82746; 83036; 83735; 84402; 84403; 84443; 84520; 85025